=== PATIENT | male | born 1940 | race Caucasian/White ===

== ENCOUNTER 2018-09-14 04:49 | Inpatient (IN) | payer MEDICARE, BC ==
[2018-09-14] MEDS ORDERED: Morphine 4 MG/ML VIAL ONE (05:30)
[2018-09-14] MEDS ORDERED: Nitroglycerin 0.4 MG TAB 1 EACH ONE (05:30)
[2018-09-14 05:37] LABS: #Eosinphils 0.2 thou/uL (0.0-0.7); #Lymphocytes 2.6 thou/uL (1.20-3.40); #Monocytes 0.8 thou/uL (0.11-0.59); #Neutrophils 5.7 thou/uL (1.40-6.50); %Basophils 0.2 % (0.0-1.0); %Eosinophils 2.2 % (0.0-10.0); %Lymphocytes 28.3 % (21.0-51.0); %Monocytes 8.4 % (0.0-10.0); Hemoglobin 13.6 g/dL (14.0-18.0); Mean Corpuscular HGB CONC 35.1 g/dL (32.0-36.0); Mean Corpuscular Hemoglobin 34.1 pg (27.0-31.0); Mean Corpuscular Volume 97.2 fL (78.0-98.0); Mean Platelet Volume 6.5 fL (7.4-10.4); Platelet Count 279 thou/uL (130-400); RBC Distribution Width 12.7 % (11.5-14.5); Red Blood Cell (RBC) Count 3.98 mill/uL (4.70-6.10); White Blood Cell (WBC) Count 9.3 thou/uL (4.8-10.8)
[2018-09-14] MEDS ORDERED: Ondansetron PF 4 MG/2 ML Vial ONE (05:51)
[2018-09-14] MEDS ORDERED: Diazepam 5 MG TAB ONE (05:51)
[2018-09-14 05:52] LABS: ALT (SGPT) 19 U/L (8-55); AST (SGOT) 27 U/L (5-34); Albumin 4.3 g/dL (3.4-4.8); Alkaline Phosphatase 80 U/L (40-150); Anion Gap 14 mmol/L (10-20); BUN (Urea Nitrogen) 6 mg/dL (8.4-25.7); Bilirubin, Total 1.4 mg/dL (0.2-1.2); Calc. Creatinine Clearance 0 mL/min (70-130); Calcium 9.2 mg/dL (7.8-10.44); Carbon Dioxide 26 mmol/L (23-31); Chloride 92 mmol/L (98-107); Estimated GFR-MDRD Greater than 90; Glucose 102 mg/dL (83-110); Potassium 3.8 mmol/L (3.5-5.1); Protein, Total 7.3 g/dL (5.8-8.1); Sodium 128 mmol/L (136-145)
[2018-09-14] MEDS ORDERED: Fentanyl 100 MCG/2 ML VIAL ONE (06:47)
--- NOTE | 2018-09-14 08:34 | RAD ---
LEFT SHOULDER 3 VIEWS: Date: 09/14/18 INDICATION: Left shoulder pain. INDICATION: Left upper extremity pain and weakness. COMPARISON: None. FINDINGS: There is mild degenerative arthrosis involving the left AC joint. Visualized left lung is clear. Sadiq ohumeral alignment is within normal limits. IMPRESSION: No acute osseous abnormality. POS: BH
--- NOTE | 2018-09-14 08:35 | RAD ---
LEFT ELBOW 4 VIEWS: INDICATION: Left upper extremity pain and weakness after a fall. COMPARISON: None. FINDINGS: There is moderate osteoarthrosis of the left elbow joint. Enthesopathic change is seen off the olecr anon. Radiocapitellar alignment is within normal limits. No joint capsular distention is noted. IMPRESSION: Moderate osteoarthrosis of the left elbow. POS: BH
--- NOTE | 2018-09-14 08:35 | RAD ---
CHEST 1 VIEW: Date: 09/14/18 INDICATION: Chest pain. COMPARISON: Prior exam dated 10/02/07. FINDINGS: Sternotomy changes are stable. Mild cardiomegaly is stable. Lungs are clear. No pleural effusion or p neumothorax evident. Osseous structures reveal no acute abnormality. IMPRESSION: No acute cardiopulmonary abnormality. POS: BH
[2018-09-14] MEDS ORDERED: ADENOSINE 60 MG/20 ML VIAL ONE (09:57)
[2018-09-14 10:00] LABS: Troponin I 0.021 ng/mL (< 0.028)
[2018-09-14] MEDS ORDERED: Nitroglycerin 0.4 MG TAB (25 Tab Bottle) PO PRN (10:04)
--- NOTE | 2018-09-14 10:51 | CON ---
DATE OF CONSULTATION: 09/14/2018 This is Moriah Herrmann PA-C dictating a report for Wali Meadows MD. CONSULTING PHYSICIAN: Wali Meadows MD REASON FOR CONSULTATION: Left elbow pain. HISTORY OF PRESENT ILLNESS: This is a 77-year-old male, who presented to the emergency room today with complaints of left arm pain and weakness. He reported pain in his elbow that also went into his forearm and shoulder. He was evaluated for cardiac concerns as well as elbow pain. Left elbows were obtained with evidence of chronic degenerative changes and no fracture, however, the patient was unable to fully flex and extend at the elbow. We have been consulted for this reason. The patient is being admitted to telemetry for further chest pain evaluation by way of the [facility]. We have been consulted for evaluation of elbow pain. Currently at bedside, the patient states that he received injections into his elbow approximately every [address] Garcia at [facility]. He is due for another injection later this month and has a scheduled appointment on the . He denies any recent fever or chills. He denies any redness to the area. He states that his arm usually hurts pretty bad by the time he needs an injection. He does state that he has had a sudden increase in activity and is doing much more than he normally does and much more than he probably should be doing. 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 He states his elbow pain has worsened since this event. He denies any numbness or tingling. He is right-hand dominant. PAST MEDICAL HISTORY: Significant for CABG in 2003, hypertension, and anxiety. PAST SURGICAL HISTORY: Coronary artery bypass graft of 2 vessels and cholecystectomy. SOCIAL HISTORY: The patient drinks everyday approximately less than 5 drinks per day. Denies any alcohol use. Does state that he uses chewing tobacco. FAMILY HISTORY: Reviewed and noncontributory. REVIEW OF SYSTEMS: A 10-point review of systems conducted and otherwise negative except for stated above. PHYSICAL EXAMINATION: VITAL SIGNS: Show blood pressure 151/83, pulse is 74, respiratory rate of 20, temperature 98.2, and O2 saturation 94% on room air. GENERAL: The patient is awake and alert. He is in no apparent distress. He is sitting in the stretcher in the ER with family at bedside. He is sitting up in bed. His left upper extremity is noted to be in a sling. He is pleasant and cooperative with exam today and answers all questions appropriately. HEENT: Head is normocephalic and atraumatic. NECK: Supple. Trachea midline. LUNGS: Breathing nonlabored. EXTREMITIES: The left upper extremity was evaluated. There is no evidence for soft tissue swelling noted. No ecchymosis. No lesions to the skin. The patient is tender globally over the elbow. He has pain elicited with active flexion and extension of the elbow. He is unable to fully flex past 90 degrees and unable to fully extend lacking approximately 30 to 40 degrees. Distal neurovascular status is intact. No pain with range of motion in the shoulder. All other extremities were noted without any signs of deformity or injury. RADIOGRAPHIC DATA: Radiographic findings reviewed including views of the left elbow demonstrate extensive degenerative changes. No evidence for acute fracture. LABORATORY DATA: Laboratory data including CBC reviewed, which shows a normal white blood cell count. IMPRESSION: Left elbow pain with chronic degenerative changes and recent exacerbation. PLAN: At this time, the patient is being admitted for further cardiac workup. I believe this pain is likely an exacerbation of his chronic underlying osteoarthritis. No signs of trauma and the patient has had a recent exacerbation in activity leading to this. No signs of infection. Please re-consult the Orthopedic Service as needed. The patient may follow up with his current orthopedic physician when he is discharged from the hospital for his scheduled injection. Job ID: [id number]
--- NOTE | 2018-09-14 11:05 | HP ---
PRIMARY CARE PROVIDER: Dr. Storm Paulino. CHIEF COMPLAINT: Chest pain. HISTORY OF PRESENT ILLNESS: Mr. Jeffers is a pleasant 77-year-old gentleman, who was seen at [facility] on September 14, 2018. He initially presented to the emergency room complaining of left elbow pain. He reports that he has a history of arthritis in the left elbow. He receives steroid injections for the same through his orthopedic doctor at [facility]. He reports that his last steroid injection was three months ago. He reports that he had a flare of left elbow arthritis last night. He reports that the pain is sharp, constant, 10/10 at its worst, worse with movements at his left elbow, improved with resting the elbow. He also reports that over the last 3 days, he has had on and off left-sided chest pain. He describes it as a dull sensation, 4/10 to 5/10 at its worst, not accompanied by shortness of breath, nausea, vomiting, palpitations or lightheadedness. REVIEW OF SYSTEMS: All other systems reviewed and found to be negative. PAST MEDICAL HISTORY: Coronary artery disease, hypertension. PAST SURGICAL HISTORY: Coronary artery bypass graft and cholecystectomy. PSYCHIATRIC HISTORY: Anxiety. SOCIAL HISTORY: The patient denies tobacco use or recreational drug use. He drinks 3-4 beers a day. CODE STATUS: I discussed his code status. He is full code. ALLERGIES: No known drug allergies. HOME MEDICATIONS: Amitryptiline PRN, Testosterone as directed, Lipitor 40 mg daily, aspirin 81 mg daily, metoprolol succinate 50 mg daily, Ativan 0.5 mg daily and omeprazole 20 mg daily. PHYSICAL EXAMINATION: GENERAL: On examination, Mr. Jeffers is awake and alert, not in acute distress. VITAL SIGNS: Blood pressure is 151/83, pulse 74, respiratory rate 20, and oxygen saturation 94% on room air. He is afebrile. When he presented to the emergency room, he had a blood pressure of 190/120. EYES: No scleral icterus, no conjunctival pallor. ENT: Moist mucosal membranes. No oropharyngeal erythema or exudates. NECK: Supple, nontender, trachea is midline. RESPIRATORY: Accessory muscles of breathing are not active. Chest wall movements are symmetric bilaterally. Lungs are clear to auscultation without wheeze, rhonchi, or crepitations. CARDIOVASCULAR: S1 and S2 are heard, regular. Peripheral pulses palpable. No carotid bruit. No pericardial rub. ABDOMEN: Soft, nontender, bowel sounds heard. NEUROLOGIC: Cranial nerves 2 through 12 intact, deep tendon reflexes 2+. MUSCULOSKELETAL: Left elbow, mildly warm, erythematous, diminished range of movement. SKIN: Erythema over the left elbow. LYMPHATIC: No cervical lymphadenopathy. PSYCHIATRIC: Normal mood, normal affect, the patient is oriented to person, place, and time. LABORATORY DATA: Mr. Jeffers's labs and investigations were reviewed. I reviewed his electrocardiogram, which shows normal sinus rhythm, no ST changes to suggest an acute coronary syndrome. I also reviewed his chest x-ray, which does not show any pulmonary infiltrates. X-rays of the left elbow showed moderate osteoarthrosis of the left elbow. X-rays of the left shoulder did not show any acute osseous abnormality. He has normal white count, normocytic anemia with hemoglobin 13.6, normal platelet count, decreased sodium of 128, normal potassium, normal creatinine, elevated total bilirubin of 1.4, and otherwise unremarkable liver profile. Troponin I is negative x2. BNP is normal at 44.8. ASSESSMENT AND PLAN: Mr. Jeffers is a pleasant 77-year-old gentleman, who was seen at [facility] on August 15, 2018. His problem list includes: 1. Chest pain: Mr. Jeffers is presenting with intermittent left-sided chest pain. Given his significant cardiac history, he will be admitted to the hospital for telemetry monitoring and for stress test. Further management depending on outcome of the stress test. 2. Left elbow pain: This appears to be chronic. We will consult Orthopedic Surgery Service for opinion and help with management. 3. Hyponatremia: Likely asymptomatic, we will recheck sodium level. 4. Hypertension: We will monitor vital signs and titrate antihypertensives as needed. Please note that patient was in hypertensive urgency at the time of presentation, but this has improved. 5. Dyslipidemia: Continue statin. 6. Anxiety: Continue alprazolam as needed. Many thanks for allowing me to participate in your patient's care. Please feel free to contact me with any questions or concerns. LEVEL OF RISK: High. LEVEL OF COMPLEXITY: High. Job ID: [id number] [facility]
--- NOTE | 2018-09-14 14:40 | NM ---
EXAM: CARDIAC SPECT HISTORY: Chest pain, coronary artery disease, status post CABG. Hypertension TECHNIQUE: A myocardial perfusion scan was performed using the single isotope 1 day protocol with freddy hnetium 99m sestamibi. [11 mCi] was injected intravenously for the rest exam followed by 31 mCifor the stress study. Pharmacologic stress with adenosine was monitored and interpreted by Nita Davidson nurse practitioner FINDINGS: Homogeneous tracer distribution is seen in the myocardial segments on stress and rest image s without fixed or reversible defects. Gated SPECT LVEF: 66% Wall motion exam: Normal IMPRESSION: Normal myocardial perfusion scan
[2018-09-14 15:02] LABS: Troponin I 0.015 ng/mL (< 0.028)
[2018-09-14 15:57] VITALS: BMI 25.0
[2018-09-14] MEDS: Morphine 2 MG/ML SYRINGE SLOW IVP PRN ×2 (16:07→22:12)
[2018-09-14] MEDS ORDERED: Diazepam 5 MG TAB PO PRN (18:00)
[2018-09-14] MEDS ORDERED: Diazepam 5 MG TAB PO SCH (18:00)
[2018-09-14] MEDS ORDERED: Thiamine HCl 200 MG/2 ML VIAL IM SCH (18:30)
[2018-09-14 19:04] LABS: Syphilis Antibody Nonreactive (Nonreactive); Syphilis Antibody Index 0.02 S/CO (<1.00 Non-Reactive)
[2018-09-15] MEDS: Morphine 2 MG/ML SYRINGE SLOW IVP PRN ×3 (03:33→12:08)
[2018-09-15] MEDS ORDERED: Diazepam 5 MG TAB PO PRN (04:00)
[2018-09-15] MEDS: Folic Acid 1 MG TAB PO SCH (08:29)
[2018-09-15] MEDS: Multivitamin W/ Minerals 1 TAB PO SCH (08:29)
[2018-09-15] MEDS: Lorazepam 0.5 MG TAB PO SCH (08:29)
[2018-09-15] MEDS: Thiamine 100 MG TAB PO SCH (08:29)
[2018-09-15] MEDS: Magnesium Oxide 400 MG TAB PO SCH (08:29)
[2018-09-15] MEDS ORDERED: Aspirin 325 mg Enteric Coated Tablet PO SCH (09:00)
[2018-09-15] MEDS ORDERED: Aspirin 81 mg Enteric Coated Tablet PO SCH (09:00)
[2018-09-15 09:13] LABS: #Eosinphils 0.1 thou/uL (0.0-0.7); #Lymphocytes 1.6 thou/uL (1.20-3.40); %Basophils 0.1 % (0.0-1.0); %Lymphocytes 20.9 % (21.0-51.0); %Monocytes 13.3 % (0.0-10.0); %Neutrophils 64.6 % (42.0-75.0); Hemoglobin 13.4 g/dL (14.0-18.0); Mean Corpuscular Hemoglobin 33.7 pg (27.0-31.0); Mean Corpuscular Volume 99.2 fL (78.0-98.0); Mean Platelet Volume 6.7 fL (7.4-10.4); Platelet Count 239 thou/uL (130-400); RBC Distribution Width 12.9 % (11.5-14.5); Red Blood Cell (RBC) Count 3.99 mill/uL (4.70-6.10); White Blood Cell (WBC) Count 7.7 thou/uL (4.8-10.8)
[2018-09-15 09:28] LABS: Anion Gap 10 mmol/L (10-20); BUN (Urea Nitrogen) 5 mg/dL (8.4-25.7); Calc. Creatinine Clearance 94 mL/min (70-130); Calcium 9.1 mg/dL (7.8-10.44); Carbon Dioxide 30 mmol/L (23-31); Chloride 96 mmol/L (98-107); Estimated GFR-MDRD Greater than 90; Glucose 122 mg/dL (83-110); Potassium 3.7 mmol/L (3.5-5.1); Sodium 132 mmol/L (136-145)
[2018-09-15] MEDS ORDERED: ISOVUE-370 76%-LOCM 1 ML ONE (11:10)
--- NOTE | 2018-09-15 11:36 | EKG ---
Test Reason : Blood Pressure : / mmHG Vent. Rate : 079 BPM Atrial Rate : 079 BPM P-R Int : 196 ms QRS Dur : 096 ms QT Int : 372 ms P-R-T Axes : 010 020 056 degrees QTc Int : 426 ms Sinus rhythm with Premature atrial complexes with Abberant conduction Incomplete right bundle branch block possible inferior HI unknown age abnormal Confirmed by DR. Jeremiah CERVANTES (3) on 09/15/2018 11:36:22 AM Referred By: Confirmed By:DR. Jeremiah CERVANTES
--- NOTE | 2018-09-15 11:37 | EKG ---
Test Reason : Blood Pressure : / mmHG Vent. Rate : 071 BPM Atrial Rate : 071 BPM P-R Int : 190 ms QRS Dur : 098 ms QT Int : 388 ms P-R-T Axes : 047 023 062 degrees QTc Int : 421 ms Normal sinus rhythm Incomplete right bundle branch block possible inferior scar Confirmed by DR. Jeremiah CERVANTES (3) on 09/15/2018 11:37:32 AM Referred By: Confirmed By:DR. Jeremiah CERVANTES
--- NOTE | 2018-09-15 12:41 | CT ---
CTA chest with contrast: Multiple axial tomograms obtained through the chest following a pulmonary angiogram protocol with mul tiplanar reconstruction and 3-D postprocessing. INDICATIONS: Dyspnea and chest pain. Assess for pulmonary embolus. Elevated d-dimer COMPARISON: None FINDINGS: Pulmonary arteries show adequate opacification. No evidence of pulmonary embolus identified. Thoracic aorta is unremarkable. No evidence of dissection. Mediastinum appears unremarkable. No adenopathy. Lungs show chronic parenchymal change. Atelectasis in the posterior left lung base. No evidence of in flammatory infiltrate. No evidence of effusion. Images through the upper abdomen appear unremarkable. Soft tissues of the thorax appear unremarkable. Osseous structures of the thorax appear unremarkable. IMPRESSION: 1. No evidence of pulmonary embolus 2. No acute lung process.
[2018-09-15] MEDS ORDERED: Acetaminophen/Codeine 30-300mg Tablet PO PRN (14:20)
[2018-09-15] MEDS ORDERED: traMADol HCl 50 MG TAB PO PRN (14:20)
--- NOTE | 2018-09-15 14:41 | PDOC.PN ---
- Subjective Encounter Start Date: 09/15/18 Encounter Start Time: 07:00 Pt seen for followup re: chest pain. Reports elbow pain, chest pain better. No nausea or vomiting. - Objective Resuscitation Status - Order Detail: 09/14/18 10:34 Resuscitation Status Routine Resuscitation Status: FULL: Full Resuscitation Discussed with: patient MAR Reviewed: Yes Vital Signs & Weight: Vital Signs (12 hours) Temp Pulse Resp BP BP Pulse Ox 09/15/18 12:20 169/83 H 09/15/18 11:34 99.1 F 92 18 169/83 H 96 09/15/18 08:17 166/90 H 09/15/18 07:50 95 09/15/18 07:40 98.2 F 90 18 166/90 H 95 09/15/18 04:35 169/84 H 09/15/18 04:00 98.2 F 99 16 169/84 H 95 Weight Weight 190 lb 3.2 oz I&O: 09/14/18 09/15/18 09/16/18 06:59 06:59 06:59 Intake Total 240 600 Balance 240 600 Result Diagrams: 09/15/18 08:50 09/15/18 08:50 EKG Reviewed by me: Yes (Tele: NSR) Phys Exam - Physical Examination Constitutional: NAD HEENT: moist MMs Neck: supple Respiratory: clear to auscultation bilateral Cardiovascular: RRR Gastrointestinal: soft L elbow tenderness Neurological: moves all 4 limbs Psychiatric: normal affect Dx/Plan (1) Chest pain Code(s): R07.9 - CHEST PAIN, UNSPECIFIED Status: Acute Comment: Improved, stress test negative, check CTA to r/o PE (2) Left elbow pain Code(s): M25.522 - PAIN IN LEFT ELBOW Status: Acute Comment: appreciate ortho service input. Continue pain medications (3) HTN (hypertension) Code(s): I10 - ESSENTIAL (PRIMARY) HYPERTENSION Status: Chronic Comment: monitor vital signs and titrate antihypertensives as needed. - Plan * . Review of Systems - Review of Systems Cardiovascular: chest pain. negative: palpitations, orthopnea, paroxysmal nocturnal dyspnea, edema, light headedness Gastrointestinal: negative: Nausea, Vomiting, Abdominal Pain, Diarrhea, Constipation, Melena, Hematochezia Musculoskeletal: Other (left elbow pain) - Medications/Allergies Allergies/Adverse Reactions: Allergies Allergy/AdvReac Type Severity Reaction Status Date / Time No Known Drug Allergies Allergy Verified 09/14/18 16:48 Medications: Current Medications Acetaminophen/Codeine Phosphate (Tylenol #3) 1 tab PO Q6H PRN PRN Reason: Pain 1-5 Acetaminophen/Codeine Phosphate (Tylenol #3) 2 tab PO Q6H PRN PRN Reason: Pain 6-10 Amitriptyline HCl (Elavil) 20 mg PO QPM [facility] Atorvastatin Calcium (Lipitor) 40 mg PO QPM [facility] Diazepam (Valium) 5 mg PO Q4H PRN PRN Reason: FOR ASE 10 OR GREATER Folic Acid (Folvite) 1 mg PO DAILY [facility] Last Admin: 09/15/18 08:29 Dose: 1 mg Iron/Minerals/Multivitamins (Theragran M) 1 tab PO DAILY [facility] Last Admin: 09/15/18 08:29 Dose: 1 tab Lorazepam (Ativan) 0.5 mg PO DAILY [facility] Last Admin: 09/15/18 08:29 Dose: 0.5 mg Magnesium Oxide (Magnesium Oxide) 400 mg PO DAILY [facility] Last Admin: 09/15/18 08:29 Dose: 400 mg Metoprolol Succinate (Toprol Xl) 50 mg PO DAILY [facility] Last Admin: 09/15/18 08:29 Dose: 50 mg Morphine Sulfate (Morphine) 2 mg SLOW IVP Q4H PRN PRN Reason: BREAKTHRU PAIN Last Admin: 09/15/18 12:08 Dose: 2 mg Nitroglycerin (Nitrostat) 0.4 mg PO Q5MIN PRN PRN Reason: Chest Pain Pantoprazole Sodium (Protonix) 40 mg PO QPM [facility] Thiamine HCl (Thiamine) 100 mg PO DAILY [facility] Last Admin: 09/15/18 08:29 Dose: 100 mg Tramadol HCl (Ultram) 50 mg PO Q6H PRN PRN Reason: Pain (1-5) Tramadol HCl (Ultram) 100 mg PO Q6H PRN PRN Reason: Pain (6-10)
[2018-09-15] MEDS: traMADol HCl 50 MG TAB PO PRN ×2 (15:04→21:08)
[2018-09-15 15:53] LABS: Amphetamine Not Detected (NotDetected); Benzodiazepine Screen Detected (NotDetected); Cocaine Metabolite Screen Not Detected (NotDetected); Medtox Reader # READER 1; Methamphetamine Not Detected (NotDetected); Opiate Screen Detected (NotDetected); Phencyclidine (PCP) Not Detected (NotDetected); THC/Cannabinoid Screen Not Detected (NotDetected); Tricyclic Screen Detected (NotDetected)
[2018-09-15 15:54] LABS: Barbiturates Screen Not Detected (NotDetected); Medtox Control Line Valid? VALID (VALID); Methadone Not Detected (NotDetected); Oxycodone Screen Not Detected (NotDetected)
[2018-09-15] MEDS: Acetaminophen/Codeine 30-300mg Tablet PO PRN (16:26)
[2018-09-15] MEDS ORDERED: hydrALAZINE 20 MG/ML VIAL SLOW IVP PRN (17:05)
[2018-09-15] MEDS: Atorvastatin Calcium 40 MG TAB PO SCH (21:09)
[2018-09-15] MEDS: Amitriptyline HCl 10 MG TAB PO SCH (21:09)
[2018-09-16 05:07] LABS: #Eosinphils 0.1 thou/uL (0.0-0.7); #Lymphocytes 2.3 thou/uL (1.20-3.40); #Monocytes 1.1 thou/uL (0.11-0.59); #Neutrophils 6.4 thou/uL (1.40-6.50); %Basophils 0.4 % (0.0-1.0); %Lymphocytes 23.1 % (21.0-51.0); %Monocytes 10.9 % (0.0-10.0); %Neutrophils 64.6 % (42.0-75.0); Hemoglobin 12.1 g/dL (14.0-18.0); Mean Corpuscular HGB CONC 34.5 g/dL (32.0-36.0); Mean Corpuscular Hemoglobin 34.3 pg (27.0-31.0); Mean Corpuscular Volume 99.2 fL (78.0-98.0); Mean Platelet Volume 6.2 fL (7.4-10.4); Platelet Count 259 thou/uL (130-400); RBC Distribution Width 12.8 % (11.5-14.5); Red Blood Cell (RBC) Count 3.52 mill/uL (4.70-6.10); White Blood Cell (WBC) Count 9.9 thou/uL (4.8-10.8)
[2018-09-16 05:34] LABS: Anion Gap 15 mmol/L (10-20); BUN (Urea Nitrogen) 10 mg/dL (8.4-25.7); Calc. Creatinine Clearance 50 mL/min (70-130); Calcium 8.9 mg/dL (7.8-10.44); Carbon Dioxide 25 mmol/L (23-31); Chloride 90 mmol/L (98-107); Estimated GFR-MDRD 45; Glucose 108 mg/dL (83-110); Potassium 3.7 mmol/L (3.5-5.1); Sodium 126 mmol/L (136-145)
[2018-09-16] MEDS: Lorazepam 0.5 MG TAB PO SCH ×2 (08:01→17:38)
[2018-09-16] MEDS: Sodium Chloride 0.9% 1,000 ML IV SCH ×3 (08:18→23:07)
[2018-09-16] MEDS: Thiamine 100 MG TAB PO SCH (08:22)
[2018-09-16] MEDS: Folic Acid 1 MG TAB PO SCH (08:22)
[2018-09-16] MEDS: Multivitamin W/ Minerals 1 TAB PO SCH (08:22)
[2018-09-16] MEDS: Magnesium Oxide 400 MG TAB PO SCH (08:22)
[2018-09-16] MEDS ORDERED: Bisacodyl 5 MG TAB PO PRN (14:16)
[2018-09-16] MEDS ORDERED: Bisacodyl 5 MG TAB PO SCH (14:30)
[2018-09-16 16:33] LABS: Anion Gap 13 mmol/L (10-20); BUN (Urea Nitrogen) 18 mg/dL (8.4-25.7); Calc. Creatinine Clearance 35 mL/min (70-130); Calcium 8.2 mg/dL (7.8-10.44); Carbon Dioxide 25 mmol/L (23-31); Chloride 87 mmol/L (98-107); Estimated GFR-MDRD 30; Glucose 144 mg/dL (83-110); Sodium 121 mmol/L (136-145)
--- NOTE | 2018-09-16 16:48 | PDOC.PN ---
- Subjective Encounter Start Date: 09/16/18 Encounter Start Time: 16:46 Pt seen for followup re: ANTHONY. Denies chest pain, left elbow pain improved. - Objective Resuscitation Status - Order Detail: 09/14/18 10:34 Resuscitation Status Routine Resuscitation Status: FULL: Full Resuscitation Discussed with: patient PAPO Reviewed: Yes Vital Signs & Weight: Vital Signs (12 hours) Temp Pulse Resp BP BP Pulse Ox 09/16/18 16:17 109/60 09/16/18 15:33 98.2 F 87 16 109/60 94 L 09/16/18 14:21 98.2 F 84 20 102/71 91 L 09/16/18 12:15 87/55 L 09/16/18 12:00 97.8 F 84 16 87/55 L 95 09/16/18 08:13 88/50 L 09/16/18 07:59 97.5 F L 90 18 88/50 L 92 L 09/16/18 07:31 95 Weight Weight 190 lb 3.2 oz I&O: 09/15/18 09/16/18 09/17/18 06:59 06:59 06:59 Intake Total 240 900 600 Output Total 125 Balance 240 900 475 Result Diagrams: 09/16/18 04:56 09/16/18 16:02 EKG Reviewed by me: Yes (Tele: NSR) Phys Exam - Physical Examination Constitutional: NAD HEENT: moist MMs Neck: supple Respiratory: clear to auscultation bilateral Cardiovascular: RRR Gastrointestinal: soft Neurological: moves all 4 limbs Psychiatric: normal affect, A&O x 3 Dx/Plan (1) ANTHONY (acute kidney injury) Code(s): N17.9 - ACUTE KIDNEY FAILURE, UNSPECIFIED Status: Acute Comment: etiology unclear. Pt receiving IV fluids. Check renal US. (2) Hyponatremia Code(s): E87.1 - HYPO-OSMOLALITY AND HYPONATREMIA Status: Acute Comment: Check urine lyrtes, and urine and serum osmolality. (3) Left elbow pain Code(s): M25.522 - PAIN IN LEFT ELBOW Status: Acute Comment: appreciate ortho service input. Continue pain medications (4) HTN (hypertension) Code(s): I10 - ESSENTIAL (PRIMARY) HYPERTENSION Status: Chronic Comment: controlled (pt was hypotensive overnight) (5) Chest pain Code(s): R07.9 - CHEST PAIN, UNSPECIFIED Status: Resolved - Plan * . Review of Systems - Review of Systems Cardiovascular: negative: chest pain, palpitations, orthopnea, paroxysmal nocturnal dyspnea, edema, light headedness Gastrointestinal: negative: Nausea, Vomiting, Abdominal Pain, Diarrhea, Constipation, Melena, Hematochezia Musculoskeletal: Other (left elbow pain) - Medications/Allergies Allergies/Adverse Reactions: Allergies Allergy/AdvReac Type Severity Reaction Status Date / Time No Known Drug Allergies Allergy Verified 09/14/18 16:48 Medications: Current Medications Acetaminophen/Codeine Phosphate (Tylenol #3) 1 tab PO Q6H PRN PRN Reason: Pain 1-5 Acetaminophen/Codeine Phosphate (Tylenol #3) 2 tab PO Q6H PRN PRN Reason: Pain 6-10 Last Admin: 09/15/18 16:26 Dose: 2 tab Amitriptyline HCl (Elavil) 20 mg PO QPM [facility] Last Admin: 09/15/18 21:09 Dose: 20 mg Atorvastatin Calcium (Lipitor) 40 mg PO QPM [facility] Last Admin: 09/15/18 21:09 Dose: 40 mg Bisacodyl (Dulcolax) 10 mg PO DAILYPRN PRN PRN Reason: Constipation Diazepam (Valium) 5 mg PO Q4H PRN PRN Reason: FOR ASE 10 OR GREATER Folic Acid (Folvite) 1 mg PO DAILY [facility] Last Admin: 09/16/18 08:22 Dose: 1 mg Hydralazine HCl (Apresoline) 10 mg SLOW IVP Q4H PRN PRN Reason: SBP Greater Than 180 Sodium Chloride (Normal Saline 0.9%) 1,000 mls @ 125 mls/hr IV .Q8H [facility] Last Admin: 09/16/18 16:29 Dose: 1,000 mls Iron/Minerals/Multivitamins (Theragran M) 1 tab PO DAILY [facility] Last Admin: 09/16/18 08:22 Dose: 1 tab Lorazepam (Ativan) 0.5 mg PO DAILY [facility] Last Admin: 09/16/18 08:01 Dose: Not Given Magnesium Oxide (Magnesium Oxide) 400 mg PO DAILY [facility] Last Admin: 09/16/18 08:22 Dose: 400 mg Metoprolol Succinate (Toprol Xl) 50 mg PO DAILY [facility] Last Admin: 09/16/18 08:01 Dose: Not Given Nitroglycerin (Nitrostat) 0.4 mg PO Q5MIN PRN PRN Reason: Chest Pain Pantoprazole Sodium (Protonix) 40 mg PO QPM [facility] Last Admin: 09/15/18 21:09 Dose: 40 mg Sodium Chloride (Flush - Normal Saline) 10 ml IVF Q12HR [facility] Last Admin: 09/16/18 08:18 Dose: 10 ml Sodium Chloride (Flush - Normal Saline) 10 ml IVF PRN PRN PRN Reason: Saline Flush Thiamine HCl (Thiamine) 100 mg PO DAILY [facility] Last Admin: 09/16/18 08:22 Dose: 100 mg Tramadol HCl (Ultram) 50 mg PO Q6H PRN PRN Reason: Pain (1-5) Tramadol HCl (Ultram) 100 mg PO Q6H PRN PRN Reason: Pain (6-10) Last Admin: 09/15/18 21:08 Dose: 100 mg
[2018-09-16 20:08] LABS: Potassium, Urine 33.2 mmol/L; Sodium, Urine Less than 20 mmol/L (Not Available)
[2018-09-16] MEDS: Atorvastatin Calcium 40 MG TAB PO SCH (20:50)
[2018-09-16] MEDS: Amitriptyline HCl 10 MG TAB PO SCH (20:50)
[2018-09-16] MEDS: Tamsulosin HCl 0.4 MG CAP PO SCH (20:50)
[2018-09-16] MEDS: Acetaminophen/Codeine 30-300mg Tablet PO PRN (20:51)
--- NOTE | 2018-09-16 21:04 | CON ---
DATE OF CONSULTATION: CONSULTING PHYSICIAN: Magdiel Rosario MD REASON FOR CONSULTATION: Hyponatremia and acute kidney injury. IMPRESSION: 1. Acute kidney injury, this is likely multifactorial including but not limited to the following hemodynamically-mediated injury in the context of overnight hypotension as well as contrast exposure with potential for contrast nephropathy. 2. Hyponatremia, query cause might be related to problem #1. PLAN: 1. Urine sodium and urine osmolality to evaluate and identify what kind of hyponatremia this patient has. 2. Renal supportive measures. 3. Gentle rehydration. 4. Avoid potentially nephrotoxic agents and renally dose all medications. 5. Further management to be dependent on the clinical course. HISTORY OF PRESENT ILLNESS: This is a 77-year-old gentleman, who presented here with chest pain, did undergo workup with CT scan of the chest with IV contrast to rule out pulmonary embolism. Of note, overnight, the patient experienced relatively low blood pressure, like systolic in the 80s. When the patient at baseline, does have blood pressure between 150 and 160. The patient has been noted with elevated creatinine of up to 2, having presented here with a creatinine of about 0.8, as a result of this sudden change in the renal function, decision has been taken to involve Renal in the management of this case. PAST MEDICAL HISTORY: Significant for coronary artery disease, hypertension. MEDICATIONS: Reviewed as documented on [place]. SOCIAL HISTORY: No alcohol. No tobacco. No illicit drug use. REVIEW OF SYSTEMS: As documented in the body of history. All other systems were reviewed and found not to be significantly related to presenting illness. PHYSICAL EXAMINATION: GENERAL: The patient was found not to be in any obvious distress. VITAL SIGNS: Afebrile, temperature 99.1, pulse 87, blood pressure 109/60, respiratory rate of 16, and O2 saturations of 94%. HEENT: Unremarkable. Moist oral mucosa. NECK: Supple. No conjunctival injection or icterus. CARDIOVASCULAR: First and second heart sounds were heard. RESPIRATORY: Clear to auscultation. DIGESTIVE: Revealed a benign abdomen with positive bowel sounds. EXTREMITIES: No peripheral edema. SKIN: No new gross rash or lymphatics. No peripheral lymphadenopathy. SUMMARY: This is a 77-year-old gentleman who presented here with chest pain while undergoing workup, now experiencing elevated creatinine and low sodium. Thank you for this consultation. We will follow with you. Yonas ID: [id number]
--- NOTE | 2018-09-17 00:20 | ULT ---
Bilateral renal ultrasound CLINICAL INDICATION: Acute kidney injury COMPARISON: None FINDINGS: Right kidney: There is no evidence of a renal mass, renal calculus, or hydronephrosis seen. The right kidney measures 10.9 cm x 6.1 cm. Left kidney: There is no evidence of a renal mass, calculus, hydronephrosis. The left kidney measures 13.1 cm x 6.2 cm. Urinary bladder: Urinary bladder is distended with urinary bladder volume of 1124.7 mL. IMPRESSION: 1. No evidence of hydronephrosis. 2. Distention of the urinary bladder with a urinary bladder volume of 1124.7 mL.
[2018-09-17] MEDS: Sodium Chloride 0.9% 1,000 ML IV SCH ×2 (05:05→12:11)
[2018-09-17 08:59] LABS: #Eosinphils 0.2 thou/uL (0.0-0.7); #Lymphocytes 1.2 thou/uL (1.20-3.40); #Monocytes 0.5 thou/uL (0.11-0.59); #Neutrophils 3.7 thou/uL (1.40-6.50); %Basophils 0.3 % (0.0-1.0); %Eosinophils 2.7 % (0.0-10.0); %Lymphocytes 21.7 % (21.0-51.0); %Monocytes 8.5 % (0.0-10.0); %Neutrophils 66.8 % (42.0-75.0); Hemoglobin 10.1 g/dL (14.0-18.0); Mean Corpuscular HGB CONC 34.8 g/dL (32.0-36.0); Mean Corpuscular Hemoglobin 34.2 pg (27.0-31.0); Mean Corpuscular Volume 98.1 fL (78.0-98.0); Mean Platelet Volume 6.2 fL (7.4-10.4); Platelet Count 193 thou/uL (130-400); RBC Distribution Width 12.5 % (11.5-14.5); Red Blood Cell (RBC) Count 2.96 mill/uL (4.70-6.10); White Blood Cell (WBC) Count 5.6 thou/uL (4.8-10.8)
[2018-09-17 09:17] LABS: Anion Gap 10 mmol/L (10-20); BUN (Urea Nitrogen) 12 mg/dL (8.4-25.7); Calc. Creatinine Clearance 87 mL/min (70-130); Calcium 8.1 mg/dL (7.8-10.44); Carbon Dioxide 26 mmol/L (23-31); Chloride 94 mmol/L (98-107); Estimated GFR-MDRD 85; Glucose 98 mg/dL (83-110); Potassium 3.8 mmol/L (3.5-5.1); Sodium 126 mmol/L (136-145)
[2018-09-17] MEDS: Magnesium Oxide 400 MG TAB PO SCH (09:33)
[2018-09-17] MEDS: Multivitamin W/ Minerals 1 TAB PO SCH (09:33)
[2018-09-17] MEDS: Lorazepam 0.5 MG TAB PO SCH (09:34)
[2018-09-17] MEDS: Folic Acid 1 MG TAB PO SCH (09:34)
[2018-09-17] MEDS ORDERED: Magnesium Citrate 300 ML BOT PO SCH (11:00)
[2018-09-17] MEDS ORDERED: Ondansetron PF 4 MG/2 ML Vial SLOW IVP PRN (11:47)
[2018-09-17] MEDS: Thiamine 100 MG TAB PO SCH (12:12)
--- NOTE | 2018-09-17 12:36 | PDOC.PN ---
- Subjective Encounter Start Date: 09/17/18 Encounter Start Time: 07:20 Pt seen for followup re: hyponatremia. Feels better. - Objective Resuscitation Status - Order Detail: 09/14/18 10:34 Resuscitation Status Routine Resuscitation Status: FULL: Full Resuscitation Discussed with: patient PAPO Reviewed: Yes Vital Signs & Weight: Vital Signs (12 hours) Temp Pulse Resp BP BP Pulse Ox 09/17/18 12:21 130/64 09/17/18 11:59 98.6 F 92 16 136/75 93 L 09/17/18 09:45 95 09/17/18 09:35 97.8 F 89 16 130/64 95 09/17/18 04:00 97/52 L 09/17/18 03:57 99.5 F 94 16 97/52 L 93 L Weight Weight 190 lb 3.2 oz I&O: 09/16/18 09/17/18 09/18/18 06:59 06:59 06:59 Intake Total 900 1950 300 Output Total 4225 1820 Balance 900 -8860 -8454 Result Diagrams: 09/17/18 08:47 09/17/18 08:47 EKG Reviewed by me: Yes (Tele: sinus tachycardia.) Phys Exam - Physical Examination Constitutional: NAD HEENT: moist MMs Neck: supple Respiratory: clear to auscultation bilateral S1, S2, reg, tachy Gastrointestinal: soft Neurological: moves all 4 limbs Psychiatric: normal affect, A&O x 3 Dx/Plan (1) Hyponatremia Code(s): E87.1 - HYPO-OSMOLALITY AND HYPONATREMIA Status: Acute Comment: sodium improved to 126 today, continue to monitor lytes (2) Left elbow pain Code(s): M25.522 - PAIN IN LEFT ELBOW Status: Acute Comment: Improved, continue pain medications (3) HTN (hypertension) Code(s): I10 - ESSENTIAL (PRIMARY) HYPERTENSION Status: Chronic Comment: controlled (4) Chest pain Code(s): R07.9 - CHEST PAIN, UNSPECIFIED Status: Resolved (5) ANTHONY (acute kidney injury) Code(s): N17.9 - ACUTE KIDNEY FAILURE, UNSPECIFIED Status: Resolved - Plan * . Review of Systems - Review of Systems Cardiovascular: negative: chest pain, palpitations, orthopnea, paroxysmal nocturnal dyspnea, edema, light headedness Gastrointestinal: negative: Nausea, Vomiting, Abdominal Pain, Diarrhea, Constipation, Melena, Hematochezia Musculoskeletal: Other (L elbow pain is better) - Medications/Allergies Allergies/Adverse Reactions: Allergies Allergy/AdvReac Type Severity Reaction Status Date / Time No Known Drug Allergies Allergy Verified 09/14/18 16:48 Medications: Current Medications Acetaminophen/Codeine Phosphate (Tylenol #3) 1 tab PO Q6H PRN PRN Reason: Pain 1-5 Last Admin: 09/17/18 05:04 Dose: 1 tab Acetaminophen/Codeine Phosphate (Tylenol #3) 2 tab PO Q6H PRN PRN Reason: Pain 6-10 Last Admin: 09/16/18 20:51 Dose: 2 tab Amitriptyline HCl (Elavil) 20 mg PO QPM [facility] Last Admin: 09/16/18 20:50 Dose: 20 mg Atorvastatin Calcium (Lipitor) 40 mg PO QPM [facility] Last Admin: 09/16/18 20:50 Dose: 40 mg Bisacodyl (Dulcolax) 10 mg PO DAILYPRN PRN PRN Reason: Constipation Diazepam (Valium) 5 mg PO Q4H PRN PRN Reason: FOR ASE 10 OR GREATER Folic Acid (Folvite) 1 mg PO DAILY [facility] Last Admin: 09/17/18 09:34 Dose: 1 mg Hydralazine HCl (Apresoline) 10 mg SLOW IVP Q4H PRN PRN Reason: SBP Greater Than 180 Sodium Chloride (Normal Saline 0.9%) 1,000 mls @ 125 mls/hr IV .Q8H [facility] Last Admin: 09/17/18 12:11 Dose: 1,000 mls Iron/Minerals/Multivitamins (Theragran M) 1 tab PO DAILY [facility] Last Admin: 09/17/18 09:33 Dose: 1 tab Lorazepam (Ativan) 0.5 mg PO DAILY [facility] Last Admin: 09/17/18 09:34 Dose: 0.5 mg Magnesium Oxide (Magnesium Oxide) 400 mg PO DAILY [facility] Last Admin: 09/17/18 09:33 Dose: 400 mg Metoprolol Succinate (Toprol Xl) 50 mg PO DAILY [facility] Last Admin: 09/17/18 09:33 Dose: 50 mg Nitroglycerin (Nitrostat) 0.4 mg PO Q5MIN PRN PRN Reason: Chest Pain Ondansetron HCl (Zofran) 4 mg SLOW IVP Q4H PRN PRN Reason: Nausea/Vomiting Last Admin: 09/17/18 12:14 Dose: 4 mg Pantoprazole Sodium (Protonix) 40 mg PO QPM [facility] Last Admin: 09/16/18 20:50 Dose: 40 mg Sodium Chloride (Flush - Normal Saline) 10 ml IVF Q12HR [facility] Last Admin: 09/17/18 09:34 Dose: Not Given Sodium Chloride (Flush - Normal Saline) 10 ml IVF PRN PRN PRN Reason: Saline Flush Tamsulosin HCl (Flomax) 0.4 mg PO HS [facility] Last Admin: 09/16/18 20:50 Dose: 0.4 mg Thiamine HCl (Thiamine) 100 mg PO DAILY [facility] Last Admin: 09/17/18 12:12 Dose: 100 mg Tramadol HCl (Ultram) 50 mg PO Q6H PRN PRN Reason: Pain (1-5) Tramadol HCl (Ultram) 100 mg PO Q6H PRN PRN Reason: Pain (6-10) Last Admin: 09/15/18 21:08 Dose: 100 mg
[2018-09-17 18:36] LABS: Sodium 130 mmol/L (136-145)
[2018-09-17] MEDS: Amitriptyline HCl 10 MG TAB PO SCH (20:47)
[2018-09-17] MEDS: Atorvastatin Calcium 40 MG TAB PO SCH (20:48)
[2018-09-17] MEDS: Tamsulosin HCl 0.4 MG CAP PO SCH (20:48)
--- NOTE | 2018-09-17 21:21 | PRG ---
DATE OF SERVICE: SUBJECTIVE: The patient was seen and examined. Seems to be doing much better. Hemodynamically stable. OBJECTIVE: HEENT: Unremarkable. CARDIOVASCULAR SYSTEM: First and second heart sounds were heard. RESPIRATORY SYSTEM: Clear to auscultation. DIGESTIVE SYSTEM: Revealed a benign abdomen with positive bowel sounds. EXTREMITIES: No peripheral edema. SKIN: No new gross rash. LYMPHATICS: No peripheral lymphadenopathy. IMPRESSION: 1. Hyponatremia, which seems to be improved. 2. Acute kidney injury, which is resolved. PLAN: 1. We will continue current renal supportive measures. 2. At this time, it is okay to discontinue IV fluid. 3. Further management will be dependent on the clinical course. Job ID: [id number]
[2018-09-18] MEDS: Sodium Chloride 0.9% 1,000 ML IV SCH ×2 (02:14→10:16)
[2018-09-18 05:31] LABS: #Eosinphils 0.2 thou/uL (0.0-0.7); #Lymphocytes 0.9 thou/uL (1.20-3.40); #Monocytes 0.4 thou/uL (0.11-0.59); #Neutrophils 2.5 thou/uL (1.40-6.50); %Eosinophils 4.5 % (0.0-10.0); %Lymphocytes 23.6 % (21.0-51.0); %Monocytes 9.9 % (0.0-10.0); Hemoglobin 9.5 g/dL (14.0-18.0); Mean Corpuscular HGB CONC 34.6 g/dL (32.0-36.0); Mean Corpuscular Hemoglobin 34.1 pg (27.0-31.0); Mean Corpuscular Volume 98.6 fL (78.0-98.0); Mean Platelet Volume 6.2 fL (7.4-10.4); Platelet Count 203 thou/uL (130-400); RBC Distribution Width 12.5 % (11.5-14.5); Red Blood Cell (RBC) Count 2.79 mill/uL (4.70-6.10)
[2018-09-18 05:49] LABS: Anion Gap 9 mmol/L (10-20); BUN (Urea Nitrogen) 8 mg/dL (8.4-25.7); Calc. Creatinine Clearance 94 mL/min (70-130); Carbon Dioxide 25 mmol/L (23-31); Chloride 103 mmol/L (98-107); Estimated GFR-MDRD Greater than 90; Glucose 151 mg/dL (83-110); Potassium 3.9 mmol/L (3.5-5.1); Sodium 133 mmol/L (136-145)
[2018-09-18 08:09] VITALS: TEMP 98.6
[2018-09-18] MEDS: Lorazepam 0.5 MG TAB PO SCH (08:11)
[2018-09-18] MEDS: Multivitamin W/ Minerals 1 TAB PO SCH (08:11)
[2018-09-18] MEDS: Folic Acid 1 MG TAB PO SCH (08:11)
[2018-09-18] MEDS: Magnesium Oxide 400 MG TAB PO SCH (08:11)
[2018-09-18] MEDS: Thiamine 100 MG TAB PO SCH (08:11)
[2018-09-18 12:20] VITALS: BP 161/80
--- NOTE | 2018-09-19 06:12 | DIS ---
DATE OF ADMISSION: 09/14/2018 DATE OF DISCHARGE: 09/18/2018 PRIMARY CARE PROVIDER: Dr. Storm Paulino. DISCHARGE DIAGNOSES: 1. Acute kidney injury. 2. Hyponatremia. 3. Chest pain, most likely musculoskeletal etiology. 4. Left elbow pain. CONDITION OF PATIENT ON THE DAY OF DISCHARGE: Stable. I assessed Mr. Jeffers on the day of discharge. He denies any chest pain or shortness of breath. Vital signs are stable. S1 and S2 are heard, regular. Lungs are clear to auscultation bilaterally. DISCHARGE MEDICATIONS: No change was made to his pre-admission home medications as dictated on my history and physical note dated September 14, 2018. CONSULTATIONS DURING THIS HOSPITALIZATION: 1. Orthopedic Surgery, Wali Meadows MD. 2. Nephrology, Magdiel Rosario MD. HOSPITAL COURSE: Mr. Jeffers is a pleasant 77-year-old gentleman, who was admitted to [facility] on September 14, 2018 for chest pain. Please refer to my history and physical note dated September 14, 2018 for further details. He had a nuclear stress test, which was normal, with left ventricular ejection fraction of 66%. He also had CT angiogram of the chest, which did not show any pulmonary embolism. There was no acute lung process. On September 16, he was found to have acute kidney injury. He was also hyponatremic. Nephrology Service was consulted. It was felt that the acute kidney injury was most likely secondary to episodes of hypotension as well as exposure to intravenous contrast. He improved with intravenous fluids. Renal ultrasound on September 16 did not show any evidence of hydronephrosis. He had distention of the urinary bladder with the urinary bladder volume of 1124 mL. At the time of admission, he also had left elbow pain. He was evaluated by Orthopedic Surgery Service. X-rays showed left elbow osteoarthrosis. There was no evidence of infection, according to Orthopedic Surgery Service. He has been advised to follow up with his current orthopedic surgeon. LABORATORY DATA: On the day of discharge, Mr. Jeffers has a sodium of 133, potassium 3.9, creatinine 0.80. White count 4000, hemoglobin 9.5, and platelet count of 203,000. Many thanks for allowing me to participate in your patient's care. Please feel free to contact me with any questions or concerns. The patient's hemoglobin trended down towards the end of this hospitalization, most likely secondary to hemodilution from intravenous fluids. He was advised to have his hemoglobin levels rechecked in 3 to 5 days' time. DISCHARGE DESTINATION: Home. TIME SPENT: Total amount of time spent coordinating this discharge: 33 minutes. ADDENDUM: Mr. Jeffers is being discharged home with a prescription for outpatient physical therapy. He was evaluated by Therapy Services while he was in the hospital. Job ID: [id number]
== END 2018-09-18 12:24 | disposition home or self-care (01) | DRG 641 ==
LOC: ERS 04:49 → ERHOLD 09:17 → 2SE 14:31
PROVIDERS: ADMIT Internal Medicine; ATTEND Internal Medicine
DX: E87.1 Hypo-osmolality and hyponatremia (principal); N17.9 Acute kidney failure, unspecified; M13.822 Other specified arthritis, left elbow; R07.9 Chest pain, unspecified; I25.10 Atherosclerotic heart disease of native coronary artery without angina pectoris; I10 Essential (primary) hypertension; E78.5 Hyperlipidemia, unspecified; F17.200 Nicotine dependence, unspecified, uncomplicated; F41.9 Anxiety disorder, unspecified; Z79.82 Long term (current) use of aspirin; Z79.899 Other long term (current) drug therapy; Z95.1 Presence of aortocoronary bypass graft; Z90.49 Acquired absence of other specified parts of digestive tract
CPT/HCPCS: 36415; 71045; 71275; 76770; 78452; 80048; 80053; 80306; 82436; 82570; 83880; 83930; 83935; 84133; 84300; 84484; 85025; 85379; 86780; 93005; 93017; 94760; A9500; J0153; J2270; J2405; J3010; J3411; J3475; J3490; Q9966

== ENCOUNTER 2019-05-06 16:46 | Observation (INO) | payer MEDICARE, BC ==
[~2019-05-06 16:46] MED LIST: Iopamidol-370 76% 500 ML 1 ML ONE
[2019-05-06 17:10] LABS: #Eosinphils 0.1 thou/uL (0.0-0.7); #Lymphocytes 2.5 thou/uL (1.20-3.40); #Monocytes 0.7 thou/uL (0.11-0.59); %Basophils 0.1 % (0.0-1.0); %Eosinophils 1.7 % (0.0-10.0); %Lymphocytes 29.7 % (21.0-51.0); %Monocytes 8.5 % (0.0-10.0); Hemoglobin 12.5 g/dL (14.0-18.0); Mean Corpuscular HGB CONC 34.9 g/dL (32.0-36.0); Mean Corpuscular Hemoglobin 33.6 pg (27.0-31.0); Mean Corpuscular Volume 96.3 fL (78.0-98.0); Mean Platelet Volume 6.6 fL (7.4-10.4); Platelet Count 219 thou/uL (130-400); RBC Distribution Width 12.2 % (11.5-14.5); Red Blood Cell (RBC) Count 3.72 mill/uL (4.70-6.10); White Blood Cell (WBC) Count 8.3 thou/uL (4.8-10.8)
[2019-05-06 17:16] LABS: INR-International Normal Ratio 0.9
[2019-05-06 17:17] LABS: PTT 27.4 SEC (22.9-36.1)
[2019-05-06 17:22] LABS: ALT (SGPT) 17 U/L (8-55); AST (SGOT) 24 U/L (5-34); Albumin 4.2 g/dL (3.4-4.8); Alkaline Phosphatase 58 U/L (40-110); Anion Gap 14 mmol/L (10-20); BUN (Urea Nitrogen) 10 mg/dL (8.4-25.7); Bilirubin, Total 1.2 mg/dL (0.2-1.2); CK (CPK) 152 U/L (30-200); Calc. Creatinine Clearance 0 mL/min (70-130); Calcium 9.1 mg/dL (7.8-10.44); Carbon Dioxide 25 mmol/L (23-31); Chloride 91 mmol/L (98-107); Estimated GFR-MDRD 82; Globulin 2.6 g/dL (2.4-3.5); Glucose 99 mg/dL (83-110); Potassium 3.9 mmol/L (3.5-5.1); Protein, Total 6.8 g/dL (5.8-8.1); Sodium 126 mmol/L (136-145)
[2019-05-06] MEDS ORDERED: Fentanyl 100 MCG/2 ML VIAL ONE ×2 (17:31→17:53)
[2019-05-06] MEDS ORDERED: Proparacaine 0.5% Opth 15 ML BOT ONE ×2 (17:32→17:40)
[2019-05-06 17:43] LABS: Acetaminophen Less than 6.0 mcg/mL (10.0-30.0); Alcohol Less than 10 mg/dL (Less than 10); Salicylate Less than 8.0 mg/dL (15.0-30.0)
--- NOTE | 2019-05-06 17:46 | CT ---
CT BRAIN WITHOUT CONTRAST: HISTORY: Slurred speech. Confusion. Difficulty speaking. Level I stroke. COMPARISON: None. FINDINGS: There is no evidence of an acute cortical infarction, hemorrhage, mass effect or midline shift. There is mild diminished attenuation of the periventricular white matter, which is nonspecific but likely reflective of chronic small vessel ischemic changes. The ventricular system is normal in size, shape and position. There is minimal mucosal thickening in the left maxillary antrum with tiny mucus retention cysts in t he right maxillary antrum. The mastoid air cells are clear. The calvarial structures have a normal ap pearance. IMPRESSION: 1. No acute intracranial abnormalities demonstrated. 2. Mild chronic small vessel ischemic changes. The above findings were discussed with Dr. Morris in the emergency department on 05/06/2019 at 1711 ho urs. CODE CR POS: TA
[2019-05-06] MEDS ORDERED: Ondansetron PF 4 MG/2 ML Vial ONE ×2 (18:06→18:09)
--- NOTE | 2019-05-06 18:22 | CT ---
CT ANGIOGRAM HEAD WITH IV CONTRAST AND 3D RECONSTRUCTIONS: CT ANGIOGRAM NECK WITH IV CONTRAST AND 3D RECONSTRUCTIONS: HISTORY: Level I stroke. The patient had slurred speech and confusion. COMPARISON: None. FINDINGS: Mild calcifications are seen in the visualized aortic arch. 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 There is a normal arrangement of the great vessels at the aortic arch, which are patent. The innominate and bilateral subclavian arteries are patent. The bilateral common carotid arteries are patent. Calcified atherosclerotic calcifications are seen a t the aortic bifurcation. The left internal and external carotid artery are patent. There is mild tim nosis involving the proximal right internal carotid artery but the degree of stenosis is less than 50 %. The remainder of the right internal carotid artery as well as the external carotid artery are ortiz nt. There are dense calcifications seen at the origins of each vertebral artery, which limits evaluation of the origins. The vertebral arteries are otherwise codominant and patent. The basilar artery is patent. The right posterior cerebral artery is patent. There is a type or igin of the left posterior cerebral artery which is also patent. The bilateral middle cerebral arteries and the anterior cerebral arteries are patent. There is mild a therosclerotic irregularity involving the M1 segment of the right middle cerebral artery but there is no significant narrowing present. A tiny outpouching is seen, related to the posterior communicating artery, related to an infundibulum. No aneurysm is seen within the limitations of the technique of t his exam. Limited visualized anterior upper lung zones are clear. Multilevel degenerative changes are seen in the cervical and visualized upper thoracic spine. Minimal mucosal thickening is seen in each maxillary antrum. The thyroid gland, parotid gland and bilateral submandibular glands demonstrate a normal CT appearanc e. Prevertebral soft tissues have a normal appearance. IMPRESSION: 1. Dense atherosclerotic vascular calcifications involving the right proximal internal carotid artery with the degree of stenosis approaching 50%. 2. The left internal carotid artery is patent. 3. Obscuration of the origins of each vertebral artery, but the vertebral arteries are otherwise ortiz nt. 4. No focal stenosis or branch occlusion is seen involving the mentasta of [place] or vertebrobasilar sy stem. POS: [facility]
--- NOTE | 2019-05-06 18:38 | RAD ---
PORTABLE CHEST: 05/06/2019 PROVIDED CLINICAL HISTORY: Altered mental status. COMPARISON: 09/14/2018 FINDINGS: The cardiac and mediastinal silhouette is within normal limits. Median sternotomy changes are seen. N o focal consolidation, pleural fluid or pneumothorax apparent. The left costophrenic angle is incompl etely included on this examination. IMPRESSION: No evidence for an acute cardiopulmonary process. POS: [facility]
--- NOTE | 2019-05-06 18:44 | PDOC.FPRHP ---
- History of Present Illness Chief Complaint: Acute onset of slurred speech History of Present Illness: Mr. Jeffers is a 78yoM who presents for evaluation of headache and concerning changes with his speech. He states he was at [employer] and had sudden onset of a bad headache, he states it's one of the worst headaches he's had. He has a history of cluster headaches in the past. He also had difficulty standing up and getting back to his truck, however he drove himself back home. He states that his headache continued to worsen when he got home. He had difficulty with balance and a hard time expressing his thoughts. His family reports stuttering and non-sensical speech. He was not oriented to person, place, or time. He denies history of stroke or similar symptoms. He had a couple episodes of emesis once he arrived to the ED. His headache has improved, but still hurts some. ED Course: 500mL bolus NS, 10 decadron, 8 zofran, 10 reglan, 50 fentanyl, 30 toradol, asa 324 - Allergies/Adverse Reactions Allergies Allergy/AdvReac Type Severity Reaction Status Date / Time No Known Drug Allergies Allergy Verified 09/14/18 16:48 - Home Medications Medication Instructions Recorded Confirmed Type Amitriptyline HCl 2 tab PO ASDIR 09/14/18 09/14/18 History Aspirin [Ecotrin Low Strength] 1 tab PO DAILY 09/14/18 09/14/18 History Atorvastatin Calcium [Lipitor] 1 tab PO QPM 09/14/18 09/14/18 History Lorazepam [Ativan] 1 tab PO DAILY 09/14/18 09/14/18 History Metoprolol Succinate 1 tab PO DAILY 09/14/18 09/14/18 History Omeprazole 1 tab PO QPM 09/14/18 09/14/18 History Testosterone Cypionate [Testone 1 applic IM ASDIR 09/14/18 09/14/18 History Cik] - History PMHx: HTN CAD, s/p CABG HLD GERD BPH vs h/o prostate cancer PSHx: Recent melanoma removal of left ear CABG (2002) Prostate surgery Cholecystectomy FHx: Unclear, family states HTN runs in family. Social: Dips tobacco Drinks 3-6 beers q night Denies illicit drug use - Review of Systems General: denies: fever/chills, weight/appetite/sleep changes, night sweats Eyes: denies: eye pain, vision changes ENT: denies: nasal congestion Respiratory: reports: cough (dry x 2 years), shortness of breath. denies: congestion Cardiovascular: reports: paroxysmal nocturnal dyspnea. denies: chest pain, palpitation, edema Gastrointestinal: reports: nausea, vomiting. denies: diarrhea, constipation, abdominal pain Genitourinary: denies: incontinence, dysuria, polyuria Skin: reports: lesions (melanoma taken off ear 05/02/2019.). denies: rashes Musculoskeletal: denies: pain, tenderness, stiffness Neurological: reports: weakness, other (possible LOC). denies: numbness, syncope, seizure Psychological: reports: anxiety - Vital signs BP: 172/79, MAP: 110, Pulse: 78, Resp: 19 (Non-Labored), Temp: 97.9 (Oral), Pain : 9, O2 sat: 98% Weight 88kg - Physical Exam Constitutional: NAD, awake, alert and oriented, well developed HEENT: normocephalic and atraumatic, PERRLA, EOMI, conjunctiva clear, grossly normal vision, grossly normal hearing, MMM, oropharynx clear Neck: supple, trachea midline, no LAD, no thyromegaly Heart: RRR, normal S1/S2, no murmurs/rubs/gallops, pulses present, no edema Lungs: CTAB, no respiratory distress, good air movement, no rales/rhonchi, no wheezing Abdomen: soft, non-tender, bowel sounds present Musculoskeletal: normal structure, normal tone, ROM grossly normal Neurological: no focal deficit, CN II-XII intact, normal sensation -Neurological: Cerebellar exam: Moderate difficulty with finger to nose, however able to do slowly. Cannot perform heel to bhakta (poor understanding) Negative pronator drift. Strength 5/5 Patient is unsteady, did not test gait. Skin: no rash/lesions, good turgor, capillary refill <2 seconds Heme/Lymphatic: no unusual bruising or bleeding, no purpura, no petechia Psychiatric: normal mood and affect, good judgment and insight, intact recent and remote memory FMR H&P: Results - Labs Result Diagrams: 05/06/19 16:58 05/07/19 04:34 Lab results: WBC 8.3 thou/uL (4.8-10.8) 05/06/19 16:58 Hgb 12.5 g/dL (14.0-18.0) L 05/06/19 16:58 Hct 35.8 % (42.0-52.0) L 05/06/19 16:58 MCV 96.3 fL (78.0-98.0) 05/06/19 16:58 Plt Count 219 thou/uL (130-400) 05/06/19 16:58 Neutrophils % 60.0 % (42.0-75.0) 05/06/19 16:58 Sodium 126 mmol/L (136-145) L 05/06/19 16:58 Potassium 3.9 mmol/L (3.5-5.1) 05/06/19 16:58 Chloride 91 mmol/L (98-107) L 05/06/19 16:58 Carbon Dioxide 25 mmol/L (23-31) 05/06/19 16:58 BUN 10 mg/dL (8.4-25.7) 05/06/19 16:58 Creatinine 0.90 mg/dL (0.7-1.3) 05/06/19 16:58 Glucose 99 mg/dL (83-110) 05/06/19 16:58 Calcium 9.1 mg/dL (7.8-10.44) 05/06/19 16:58 Total Bilirubin 1.2 mg/dL (0.2-1.2) 05/06/19 16:58 AST 24 U/L (5-34) 05/06/19 16:58 ALT 17 U/L (8-55) 05/06/19 16:58 Alkaline Phosphatase 58 U/L (40-110) 05/06/19 16:58 Ammonia 13 umol/L (18-72) L 05/06/19 17:25 Creatine Kinase 152 U/L (30-200) 05/06/19 16:58 B-Natriuretic Peptide 39.1 pg/mL (0-100) 05/06/19 16:58 Serum Total Protein 6.8 g/dL (5.8-8.1) 05/06/19 16:58 Albumin 4.2 g/dL (3.4-4.8) 05/06/19 16:58 Lipase 49 U/L (8-78) 05/06/19 16:58 - Radiology Interpretation CT scan - head Status: report reviewed by me (IMPRESSION: 1. Dense atherosclerotic vascular calcifications involving the right proximal internal carotid artery with the degree of stenosis approaching 50%. 2. The left internal carotid artery is patent. 3. Obscuration of the origins of each vertebral artery, but the vertebral arteries are otherwise ortiz nt. 4. No focal stenosis or branch occlusion is seen involving the [place] or vertebrobasilar system. CT head: IMPRESSION: 1. No acute intracranial abnormalities demonstrated. 2. Mild chronic small vessel ischemic changes.) FMR H&P: A/P - Problem List (1) Headache Current Visit: Yes Status: Acute Code(s): R51 - HEADACHE (2) CVA (cerebral vascular accident) Current Visit: Yes Status: Suspected Code(s): I63.9 - CEREBRAL INFARCTION, UNSPECIFIED (3) Hyponatremia Current Visit: No Status: Chronic Code(s): E87.1 - HYPO-OSMOLALITY AND HYPONATREMIA Comment: sodium improved to 126 today, continue to monitor lytes (4) HTN (hypertension) Current Visit: No Status: Chronic Code(s): I10 - ESSENTIAL (PRIMARY) HYPERTENSION Comment: controlled - Plan CVA rule out -Acute onset of symptoms around 12:00pm 1/6 of dysarthria and altered speech. -Symptoms are slowly improving -CT angio head and neck showed no occlusion or severe focal stenosis, CT head showed no acute large intracranial bleed. -Will admit to the stroke floor, plan for MRI in the morning -Patient is on low intensity statin, will increase dose. -Daily ASA -Permissive HTN overnight (prn for SBP >220/110) -FLP ordered for the morning HTN -Patient is taking metoprolol at home. Recommend allowing permissive HTN overnight and restarting home meds tomorrow. -Will monitor Anemia -Labs pending. Has not previously been worked up. Anxiety -patient takes alprazolam prn at night Prostatic hyperplasia -family is unclear if he had history of prostate cancer or BPH and he does not wish to discuss with them present. -After several attempts in the ED he was able to void in the urinal. GERD -continue PPI CAD -s/p 4 vessel CABG -On statin therapy Hyponatremia -possibly chronic. On NS. Will recheck BMP in the morning Deconditioning -Patient reports mechanical fall last January/March and family states he has been increasingly unsteady since that time. -Discussed possibility of d/c to inpatient rehab as an option, family and patient are interested. -PT/OT consulted. Disposition/LOS: Code: Full VTE: SCDs Dispo: Stable, observation, will likely stay <48 hours. FMR H&P: Upper Level - Pertinent history 78 year old male with PMH HTN, HLD, CAD s/p CABG, anxiety, and prostate problems that presents with severe headache and speech disturbance onset of approximately 12:00 pm this afternoon. Patient reports he was at [facility] when he started to develop a headache. The headache progressed to the point that he describes it as the "worst headache of his life". He got weak in the legs and essentially fell to the ground. Patient reports that he was able to drive home, but he took the "back roads" home. He made it home and was able to call his daughter. Upon arrival to the house, the reports that he was out of it. He was then taken to the ED for evaluation. Patient still endorses headache, although he reports it is much improved. Patient was given fentanyl and toradol for headache in ED. Patient denies chest pain, shortness of breath, cough, chest pain. He endorses generalized weakness, but he denies focal weakness. He reports changes in speech and difficulty with word finding. reports that he was unable to make sense of his words. This has improved since arrival to ED , but he still has confused speech. - Pertinent findings General: Alert and oriented x3. No acute distress. HEENT: Dry MMM. Atraumatic. Card: RRR, no appreciable murmurs Resp: CTA bilaterally Abdom: Soft, non-tender Skin: No lesions Ext: No cyanosis or edema Neuro: Left facial droop, CN II-XII intact, strength 5/5 in upper and lower extremities - Plan Date/Time: 05/06/191843 ISruthi, have evaluated this patient and agree with findings/plan as outlined by event planning intern resident. Pertinent changes/additions are listed here. TIA vs. CVA - CT brain: Mild chronic small vessel ischemic changes - CTA head/neck: Right proximal internal carotid stenosis approaching 50%; consider as potential contributor - CXR: no acute cardiopulmonary process - ASA 325 mg given in ED - ABCD risk score: 5 and TIA/CVA on ASA; would start dual antiplatelet therapy with ASA 325 mg and Clopidogrel (loading dose 300 mg, followed by 75 mg x21 days ); will wait to start dual antiplatelet therapy until MRI performed - Will obtain echo - CBC, PT/PTT/INR, CMP, FLP, and ESR ordered - BP goals: <220/120; lower BP by 15% during first 24 hours - Will continue high intensity statin - Given "worst headache of life", some concern for SAH, particularly in setting of hyponatremia (although this appears chronic). CT brain negative. Discussion had regarding LP to further assess. This was decided against at this time given negative CTA head. - Dysphagia screen prior to diet - VTE ppx with SCD's. Can consider pharmacologic VTE ppx within 48 hours if restricted mobility unless proceeding with dual antiplatelet therapy as discussed above. - TSH pending Deconditioning - Inpatient rehab consult placed Moderate hyponatremia - Na 126, appears chronic - Would continue to monitor - Consider salt tablets - NS at 75 mL/hr (uncertain if HF) - Serum osm pending to assess if hypotonic/hypertonic hyponatremia - Urine Na and urine Chloride pending to further evaluate, urine osm also pending - TSH pending HTN - Will allow for permissive HTN; see above Chronic normocytic anemia - Will get iron studies, B12, folate CAD s/p CABG - Continue home medications; will hold BP medications to allow for permissive HTN HLD - Continue statin; will ensure high intensity GERD - Continue home medications BPH vs h/o prostate cancer - Higher risk for thrombotic events if active cancer is present; would look into this further DVT PPX: SCD's Code status: Full Dispo: Obs on stroke. Anticipate LOS <48 hours. Addendum - Attending - Attending Attestation Date/Time: 05/07/19 5539 I personally evaluated the patient and discussed the management with Dr. Linton on 05/06/2019 I agree with the History, Examination, Assessment and Plan documented above with any addition or exceptions noted below - 78 yo male with h/o HTN, CAD s/p CABG, and HLD presented with GRANT and confusion. Patient reports he was at [facility] when he developed a GRANT and felt weak. He was able to get home but when family checked on him they found he was confused, had slurred speech and was brought to the ER. Currently he reports that his GRANT is improved. Denies any weakness in extremities. PMH/PSH/Meds/SH reviewed and agree with resident's findings. Exam repeated by me and agree with resident's findings. Labs: WBC= 8.3 , H/H =12.5/35.8, Upr=853, Vu=539, K=3.9, Cl=91, CO2=25, BUN/Cr=10/0.90, Gluc=99 , trop I < 0.010. UDS- negative CTA: 1. Dense atherosclerotic vascular calcifications involving the right proximal internal carotid artery with the degree of stenosis approaching 50%. 2. The left internal carotid artery is patent. 3. Obscuration of the origins of each vertebral artery, but the vertebral arteries are otherwise ortiz nt. 4. No focal stenosis or branch occlusion is seen involving the [place] or vertebrobasilar system. CT head: IMPRESSION: 1. No acute intracranial abnormalities demonstrated. 2. Mild chronic small vessel ischemic changes. A/P: 1) GRANT/slurred speech/confusion- now improved; MRI in AM; permissive hypertension. Continue ASA. PT/OT/ST 2) HTN- continue to monitor 3) HLD- high dose statin
[2019-05-06] MEDS ORDERED: Metoclopramide HCl 10 MG/2 ML VIAL ONE (18:46)
[2019-05-06] MEDS ORDERED: Aspirin Chewable 81 MG TAB ONE (18:46)
[2019-05-06] MEDS ORDERED: Dexamethasone 4 mg/ml Vial ONE (18:46)
[2019-05-06] MEDS ORDERED: Ketorolac Tromethamine 30 MG/ML VIAL ONE (18:52)
[2019-05-06] MEDS ORDERED: hydrALAZINE 20 MG/ML VIAL SLOW IVP PRN (19:48)
[2019-05-06] MEDS ORDERED: Acetaminophen 325 MG TAB PO PRN (19:48)
[2019-05-06] MEDS ORDERED: Ondansetron ODT 4 MG TAB PO PRN (19:48)
[2019-05-06 20:24] LABS: Bilirubin Negative (Negative); Blood, Urine Negative (Negative); Clarity Clear (Clear); Glucose, Urine (Dipstick) Normal (Negative); Leukocyte Negative Leu/uL (Negative); Nitrite Negative (Negative); Protein, Urine (Dipstick) Negative (Neg-Trace); Urobilinogen Normal mg/dL (Less than 2)
[2019-05-06] MEDS ORDERED: Acetaminophen 325 MG TAB ONE (20:25)
[2019-05-06 20:34] LABS: Amphetamine Not Detected (NotDetected); Barbiturates Screen Not Detected (NotDetected); Benzodiazepine Screen Not Detected (NotDetected); Cocaine Metabolite Screen Not Detected (NotDetected); Medtox Control Line Valid? VALID (VALID); Medtox Reader # READER 1; Methadone Not Detected (NotDetected); Methamphetamine Not Detected (NotDetected); Opiate Screen Not Detected (NotDetected); Oxycodone Screen Not Detected (NotDetected); Phencyclidine (PCP) Not Detected (NotDetected); THC/Cannabinoid Screen Not Detected (NotDetected); Tricyclic Screen Not Detected (NotDetected)
[2019-05-07 01:54] VITALS: BMI 24.4
[2019-05-07] MEDS: Atorvastatin Calcium 40 MG TAB PO SCH ×2 (05:17→20:54)
[2019-05-07 05:19] LABS: Hemoglobin A1c 5.3 % (4.0-6.0)
--- NOTE | 2019-05-07 05:22 | PDOC.FPRHP ---
- Allergies/Adverse Reactions Allergies Allergy/AdvReac Type Severity Reaction Status Date / Time No Known Drug Allergies Allergy Verified 09/14/18 16:48 - Home Medications Medication Instructions Recorded Confirmed Type Amitriptyline HCl 2 tab PO ASDIR 09/14/18 09/14/18 History Aspirin [Ecotrin Low Strength] 1 tab PO DAILY 09/14/18 09/14/18 History Atorvastatin Calcium [Lipitor] 1 tab PO QPM 09/14/18 09/14/18 History Lorazepam [Ativan] 1 tab PO DAILY 09/14/18 09/14/18 History Metoprolol Succinate 1 tab PO DAILY 09/14/18 09/14/18 History Omeprazole 1 tab PO QPM 09/14/18 09/14/18 History Testosterone Cypionate [Testone 1 applic IM ASDIR 09/14/18 09/14/18 History Cik] - History PMHx: PSHx: FHx: Social: - Vital signs BP: [] HR: [] RR: [] Tmax: [] Pox: []% on [] Wt: [] FMR H&P: Results - Labs Result Diagrams: 05/06/19 16:58 05/07/19 04:34 Lab results: WBC 8.3 thou/uL (4.8-10.8) 05/06/19 16:58 Hgb 12.5 g/dL (14.0-18.0) L 05/06/19 16:58 Hct 35.8 % (42.0-52.0) L 05/06/19 16:58 MCV 96.3 fL (78.0-98.0) 05/06/19 16:58 Plt Count 219 thou/uL (130-400) 05/06/19 16:58 Neutrophils % 60.0 % (42.0-75.0) 05/06/19 16:58 Sodium 126 mmol/L (136-145) L 05/06/19 16:58 Potassium 3.9 mmol/L (3.5-5.1) 05/06/19 16:58 Chloride 91 mmol/L (98-107) L 05/06/19 16:58 Carbon Dioxide 25 mmol/L (23-31) 05/06/19 16:58 BUN 10 mg/dL (8.4-25.7) 05/06/19 16:58 Creatinine 0.90 mg/dL (0.7-1.3) 05/06/19 16:58 Glucose 99 mg/dL (83-110) 05/06/19 16:58 Calcium 9.1 mg/dL (7.8-10.44) 05/06/19 16:58 Total Bilirubin 1.2 mg/dL (0.2-1.2) 05/06/19 16:58 AST 24 U/L (5-34) 05/06/19 16:58 ALT 17 U/L (8-55) 05/06/19 16:58 Alkaline Phosphatase 58 U/L (40-110) 05/06/19 16:58 Ammonia 13 umol/L (18-72) L 05/06/19 17:25 Creatine Kinase 152 U/L (30-200) 05/06/19 16:58 B-Natriuretic Peptide 39.1 pg/mL (0-100) 05/06/19 16:58 Serum Total Protein 6.8 g/dL (5.8-8.1) 05/06/19 16:58 Albumin 4.2 g/dL (3.4-4.8) 05/06/19 16:58 Lipase 49 U/L (8-78) 05/06/19 16:58 Urine Ketones Trace mg/dL (Negative) A 05/06/19 20:10 Urine Blood Negative (Negative) 05/06/19 20:10 Urine Nitrite Negative (Negative) 05/06/19 20:10 Ur Leukocyte Esterase Negative Lino/uL (Negative) 05/06/19 20:10 FMR H&P: A/P - Problem List (1) GERD (gastroesophageal reflux disease) Current Visit: Yes Status: Chronic Code(s): K21.9 - GASTRO-ESOPHAGEAL REFLUX DISEASE WITHOUT ESOPHAGITIS (2) CAD (coronary artery disease) Current Visit: Yes Status: Chronic Code(s): I25.10 - ATHSCL HEART DISEASE OF [place] CORONARY ARTERY W/O ANG PCTRS (3) Anemia Current Visit: Yes Status: Chronic Code(s): D64.9 - ANEMIA, UNSPECIFIED (4) Prostatic hyperplasia Current Visit: Yes Status: Chronic Code(s): N40.0 - BENIGN PROSTATIC HYPERPLASIA WITHOUT LOWER URINRY TRACT SYMP (5) Headache Current Visit: Yes Status: Acute Code(s): R51 - HEADACHE (6) Hyponatremia Current Visit: No Status: Chronic Code(s): E87.1 - HYPO-OSMOLALITY AND HYPONATREMIA Comment: sodium improved to 126 today, continue to monitor lytes (7) HTN (hypertension) Current Visit: No Status: Chronic Code(s): I10 - ESSENTIAL (PRIMARY) HYPERTENSION Comment: controlled - Plan CVA rule out -Acute onset of symptoms around 12:00pm 1/6 of dysarthria and altered speech. -Symptoms are slowly improving -CT angio head and neck showed no occlusion or severe focal stenosis, CT head showed no acute large intracranial bleed. -Will admit to the stroke floor, plan for MRI in the morning -Patient is on low intensity statin, dose increased -Daily ASA -FLP: triglycerides 33, total chol 122, LDL 66, HDL 49 -THS: 0.842 -A1C: 5.3 HTN -Patient is taking metoprolol at home. Recommend allowing permissive HTN overnight and restarting home meds tomorrow. -Will monitor Anemia -Labs pending. Has not previously been worked up. Anxiety -patient takes alprazolam prn at night Prostatic hyperplasia -family is unclear if he had history of prostate cancer or BPH and he does not wish to discuss with them present. -After several attempts in the ED he was able to void in the urinal. GERD -continue PPI CAD -s/p 4 vessel CABG -On statin therapy Hyponatremia -likely chronic. On NS. -sodium 126>127 Deconditioning -Patient reports mechanical fall last January/March and family states he has been increasingly unsteady since that time. -Discussed possibility of d/c to inpatient rehab as an option, family and patient are interested. -PT/OT consulted. Disposition/LOS: Code: Full VTE: SCDs Dispo: Stable, observation, will likely stay <48 hours. FMR H&P: Upper Level - Plan Date/Time: 05/07/19 0520 I, [], have evaluated this patient and agree with findings/plan as outlined by academic intern resident. Pertinent changes/additions are listed here.
[2019-05-07 05:36] LABS: Anion Gap 11 mmol/L (10-20); BUN (Urea Nitrogen) 11 mg/dL (8.4-25.7); Calc. Creatinine Clearance 79 mL/min (70-130); Calcium 8.4 mg/dL (7.8-10.44); Carbon Dioxide 26 mmol/L (23-31); Cardiac Risk 2.5 (Less than 4.5); Chloride 95 mmol/L (98-107); Cholesterol 122 mg/dl (< 200 Desired); Estimated GFR-MDRD 80; Glucose 164 mg/dL (83-110); HDL Cholesterol 49 mg/dL (>60 Neg Risk); Iron 58 ug/dL (65-175); Iron Binding Capacity, Total 246 mcg/dL (261-462); LDL Cholesterol, Calculated 66 mg/dL; Potassium 4.6 mmol/L (3.5-5.1); Sodium 127 mmol/L (136-145); Triglycerides 33 mg/dL (Less than 150)
[2019-05-07 05:55] LABS: Ferritin 301.91 ng/mL (22-322)
--- NOTE | 2019-05-07 07:43 | PDOC.FM ---
- Subjective Subjective: Patient resting comfortably this morning. Ya reported that he had just fallen asleep. She states that later in the night he had reported that his headache had resolved. - Objective Vital Signs & Weight: Vital Signs (12 hours) Temp Pulse Resp BP Pulse Ox 05/07/19 07:25 97.8 F 83 15 149/94 H 97 05/07/19 03:55 98.2 F 80 16 110/65 96 05/07/19 01:00 98.7 F 70 16 124/76 97 Weight Weight 83.915 kg I&O: 05/06/19 05/07/19 05/08/19 06:59 06:59 06:59 Intake Total 375 Balance 375 Result Diagrams: 05/06/19 16:58 05/07/19 04:34 EKG Reviewed by me: Yes (sinus 70s-80s) Phys Exam - Physical Examination Constitutional: NAD HEENT: moist MMs Neck: supple, full ROM Respiratory: no wheezing, clear to auscultation bilateral Cardiovascular: RRR, no significant murmur Gastrointestinal: soft, positive bowel sounds Musculoskeletal: no edema, pulses present Skin: no rash, normal turgor Dx/Plan (1) GERD (gastroesophageal reflux disease) Code(s): K21.9 - GASTRO-ESOPHAGEAL REFLUX DISEASE WITHOUT ESOPHAGITIS Status: Chronic (2) CAD (coronary artery disease) Code(s): I25.10 - ATHSCL HEART DISEASE OF [place] CORONARY ARTERY W/O ANG PCTRS Status: Chronic (3) Anemia Code(s): D64.9 - ANEMIA, UNSPECIFIED Status: Chronic (4) Prostatic hyperplasia Code(s): N40.0 - BENIGN PROSTATIC HYPERPLASIA WITHOUT LOWER URINRY TRACT SYMP Status: Chronic (5) Headache Code(s): R51 - HEADACHE Status: Acute (6) Hyponatremia Code(s): E87.1 - HYPO-OSMOLALITY AND HYPONATREMIA Status: Chronic (7) HTN (hypertension) Code(s): I10 - ESSENTIAL (PRIMARY) HYPERTENSION Status: Chronic - Plan Plan: CVA vs TIA vs Cluster Headache -Acute onset of symptoms around 12:00pm 1/6 of dysarthria and altered speech. -Per patient's fiancee patient's headache resolved last night; sleeping soundly this morning -CT angio head and neck showed no occlusion or severe focal stenosis, CT head showed no acute large intracranial bleed. -Patient is on low intensity statin, dose increased -Daily ASA -FLP: triglycerides 33, total chol 122, LDL 66, HDL 49 -THS: 0.842 -A1C: 5.3 -MRI and echo today HTN -Patient is taking metoprolol at home, will restart today -Will monitor Anemia -Hgb 12.5 -iron low 58 -TIBC low 246 -ferritin wnl 300 -likely anemia of chronic disease Anxiety -patient takes alprazolam prn at night Prostatic hyperplasia -family is unclear if he had history of prostate cancer or BPH and he does not wish to discuss with them present. -After several attempts in the ED he was able to void in the urinal. GERD -continue PPI CAD -s/p 4 vessel CABG -On statin therapy Hyponatremia -likely chronic. On NS. -sodium 126>127 -serum osm 271, slightly low -urine studies pending, will follow Deconditioning -Patient reports mechanical fall last January/March and family states he has been increasingly unsteady since that time. -Discussed possibility of d/c to inpatient rehab as an option, family and patient are interested. -PT/OT consulted. Disposition/LOS: Code: Full VTE: SCDs Dispo: Stable, obs for tia/cva workup. Echo and MRI pending. PT/OT and post acute screening for possible inpt rehab
[2019-05-07] MEDS ORDERED: Losartan 25 MG TAB PO SCH (09:00)
[2019-05-07] MEDS ORDERED: Prevnar 13-Val Conj/PF 0.5 ML SYRINGE IM ONE (09:00)
[2019-05-07] MEDS ORDERED: FLU VACC TS2019-20(65YR UP)/PF 180 MCG/0.5 ML SYRINGE IM ONE (09:00)
[2019-05-07] MEDS ORDERED: Aspirin 81 mg Enteric Coated Tablet PO SCH (09:00)
[2019-05-07] MEDS: Dicyclomine 20 MG TAB PO SCH (09:47)
[2019-05-07] MEDS: Aspirin 325 mg Enteric Coated Tablet PO SCH (09:47)
[2019-05-07] MEDS: Doxycycline 100 MG CAP PO SCH ×2 (09:52→20:54)
[2019-05-07] MEDS: Sodium Chloride 0.9% 1,000 ML IV SCH ×2 (09:57→13:39)
[2019-05-07] MEDS ORDERED: Clopidogrel Bisulfate 300 MG TAB PO SCH (10:30)
--- NOTE | 2019-05-07 10:59 | PRG ---
DATE OF SERVICE: 05/07/2019 ADDENDUM: This is an addendum to the note of Dr. Dina Cormier. I have examined Mr. Jeffers and discussed the case with Dr. Dina Cormier. I agree with her assessment and plan. Mr. Jeffers is a pleasant 78-year-old man, who presented yesterday with a very severe headache suggestive of subarachnoid bleed. However, imaging did not show any evidence of bleed, and this morning, he looks and feels much better. His headache was associated with disorientation and nonsensical speech, which has since also cleared. His studies so far include a brain CT that concluded there were no acute intracranial abnormalities demonstrated. Mild chronic small-vessel ischemic changes. He also had a CTA of the head and neck with the conclusion that there was dense atherosclerotic vascular calcification involving the right proximal internal carotid artery with stenosis of approximately 50%. The left internal carotid artery was patent. There was obscuration of the origins of each vertebral artery, but the vertebral arteries are otherwise patent. There was no focal stenosis or branch occlusion seen involving the [place] or the vertebrobasilar system. We now have the patient on aspirin and a statin to cover the possibility that this was a TIA, although it could have been an exacerbation of his cluster headache syndrome. In the event, this morning, he is back to normal and ready for either rehab or possible discharge. Job ID: [id number]
--- NOTE | 2019-05-07 11:36 | MRI ---
Brain MRI without contrast: 05/07/2019 COMPARISON: None HISTORY: Speech difficulties, bilateral leg weakness, assess for acute infarction TECHNIQUE: Multiplanar multisequence MR imaging of the brain obtained without contrast FINDINGS: The diffusion weighted imaging demonstrates no evidence for acute infarction. The axial gra dient echo imaging demonstrates no evidence for intracranial hemorrhage. Imaged paranasal sinuses and mastoid air cells are grossly unremarkable. Regional bone marrow signal intensity is grossly unre markable as well. There are numerous subcentimeter foci of increased T2 and FLAIR signal within the periventricular whi te matter suggesting small vessel disease. IMPRESSION: Evidence of small vessel disease. No MR evidence of acute infarction or intracranial hemo rrhage.
[2019-05-07] MEDS ORDERED: Docusate 100 MG CAP PO PRN (16:16)
[2019-05-07] MEDS ORDERED: Lorazepam 0.5 MG TAB PO SCH (23:30)
--- NOTE | 2019-05-08 05:29 | PDOC.FM ---
- Subjective Subjective: Patient doing well this morning. Speech at baseline, headache resolved. Discussed that we are looking into HH/PT/OT outpatient for patient at this time as he was not accepted to inpatient rehab, patient agreeable with plan of care. - Objective Vital Signs & Weight: Vital Signs (12 hours) Temp Pulse Resp BP Pulse Ox 05/08/19 04:00 98 F 78 16 130/81 97 05/08/19 00:00 97.9 F 72 16 133/79 96 05/07/19 20:00 98.1 F 74 16 119/71 97 Weight Admit Weight 83.915 kg Weight 83.915 kg I&O: 05/06/19 05/07/19 05/08/19 06:59 06:59 06:59 Intake Total 375 1000 Balance 375 1000 Result Diagrams: 05/06/19 16:58 05/07/19 04:34 Phys Exam - Physical Examination Constitutional: NAD HEENT: moist MMs, sclera anicteric L ear bandaging intact Neck: supple, full ROM Respiratory: no wheezing, clear to auscultation bilateral Cardiovascular: RRR, no significant murmur Gastrointestinal: soft, non-tender Musculoskeletal: no edema, pulses present Neurological: moves all 4 limbs Psychiatric: normal affect, A&O x 3 Skin: normal turgor Dx/Plan (1) GERD (gastroesophageal reflux disease) Code(s): K21.9 - GASTRO-ESOPHAGEAL REFLUX DISEASE WITHOUT ESOPHAGITIS Status: Chronic (2) CAD (coronary artery disease) Code(s): I25.10 - ATHSCL HEART DISEASE OF [place] CORONARY ARTERY W/O ANG PCTRS Status: Chronic (3) Anemia Code(s): D64.9 - ANEMIA, UNSPECIFIED Status: Chronic (4) Prostatic hyperplasia Code(s): N40.0 - BENIGN PROSTATIC HYPERPLASIA WITHOUT LOWER URINRY TRACT SYMP Status: Chronic (5) Headache Code(s): R51 - HEADACHE Status: Acute (6) Hyponatremia Code(s): E87.1 - HYPO-OSMOLALITY AND HYPONATREMIA Status: Chronic (7) HTN (hypertension) Code(s): I10 - ESSENTIAL (PRIMARY) HYPERTENSION Status: Chronic - Plan Plan: TIA vs Cluster Headache -Acute onset of symptoms around 12:00pm 1/6 of dysarthria and altered speech. -Per patient's fiancee patient's headache resolved last night; sleeping soundly this morning -CT angio head and neck showed no occlusion or severe focal stenosis, CT head showed no acute large intracranial bleed. -Patient is on low intensity statin, dose increased -Daily ASA -FLP: triglycerides 33, total chol 122, LDL 66, HDL 49 -THS: 0.842 -A1C: 5.3 -MRI: small vessel disease without evidence for acute infarct or hemorrhage -Echo: EF 55-60%, mild increase in pulmonary artery pressure -plavix started 05/08 -rehab rejected patient; case management to help organize HH and outpatient PT/ OT HTN -Patient is taking metoprolol and losartan at home -Will monitor Anemia -Hgb 12.5 -iron low 58 -TIBC low 246 -ferritin wnl 300 -likely anemia of chronic disease Anxiety -patient takes alprazolam prn at night Prostatic hyperplasia -family is unclear if he had history of prostate cancer or BPH and he does not wish to discuss with them present. -After several attempts in the ED he was able to void in the urinal. GERD -continue PPI CAD -s/p 4 vessel CABG -On statin therapy Hyponatremia -likely chronic. On NS. -sodium 126>127 -serum osm 271, slightly low -urine studies: urine sodium <20, urine osm 349 -likely slight hypovolemia Deconditioning -Patient reports mechanical fall last January/March and family states he has been increasingly unsteady since that time. -PT/OT consulted, rec rehab vs HH -rehab declined patient -CM to help organize HH/outpatient PT/OT Disposition/LOS: Code: Full VTE: SCDs Dispo: Stable, CM to organize HH and PT/OT outpatient; likely d/c this afternoon
[2019-05-08] MEDS: Doxycycline 100 MG CAP PO SCH (08:46)
[2019-05-08] MEDS: Aspirin 325 mg Enteric Coated Tablet PO SCH (08:46)
[2019-05-08] MEDS ORDERED: Losartan 25 MG TAB PO SCH (09:00)
[2019-05-08] MEDS ORDERED: Clopidogrel Bisulfate 75 MG TAB PO SCH (09:00)
[2019-05-08] MEDS ORDERED: Polyethylene Glycol 3350 17 GM Packet PO SCH (09:00)
[2019-05-08] MEDS: Dicyclomine 20 MG TAB PO SCH (09:12)
--- NOTE | 2019-05-08 11:27 | PRG ---
DATE OF SERVICE: 05/08/2019 Mr. Jeffers is resting in bed this morning, in no acute distress. He did have a brain MRI yesterday that showed evidence of small-vessel disease. There was no evidence of an acute infarct or intracranial hemorrhage. It is likely that Mr. Jeffers suffered from one of his cluster headaches, but does not show any evidence of [employer] injury or damage. This also could possibly have been a TIA and he will be placed on aspirin and atorvastatin as well. Otherwise, he is ready for placement or discharge for followup with his PCP. Job ID: [id number]
[2019-05-08 11:47] VITALS: BP 134/86; TEMP 97.5
[2019-05-08] MEDS ORDERED: Lorazepam 0.5 MG TAB PO SCH ×2 (21:00)
[2019-05-09 16:09] LABS: Hematocrit 31.8 % (37.5-51.0); RBC Folate Test Component 1906 ng/mL (>498)
--- NOTE | 2019-05-10 09:28 | DIS ---
DATE OF ADMISSION: 05/06/2019 DATE OF DISCHARGE: 05/08/2019 ADMITTING RESIDENT: Xiomara Linton MD ADMITTING ATTENDING: Alisha Ruiz MD DISCHARGE ATTENDING: Yaron aC MD DISCHARGE RESIDENT: Dina Cormier MD CONSULTS: 1. PT/OT. 2. Wound care. PROCEDURES: None. IMAGIN. Brain CT: No acute intracranial abnormalities demonstrated. Mild chronic small-vessel ischemic changes. 2. CT angiography: Dense atherosclerotic vascular calcification involving the right proximal internal carotid artery with a stenosis approaching 50%. The left internal carotid artery is patent. Obscuration of the origins of each vertebral artery, but the vertebral arteries are otherwise patent. No focal stenosis or branch occlusion is seen involving the [place] or vertebrobasilar system. 3. Chest x-ray: No evidence for an acute cardiopulmonary process. 4. Brain MRI: Evidence of small-vessel disease. No MR evidence of acute infarction or intracranial hemorrhage. 5. Echo: EF was 55% to 60%. Mild concentric LVH. Left atrium is mild to moderately dilated. Mild mitral regurgitation. Mildly calcified aortic valve. Mild aortic insufficiency. No aortic stenosis. Mild to moderate tricuspid regurgitation. Mildly elevated pulmonary artery pressure. PRIMARY DIAGNOSIS: Transient ischemic attack versus cluster headaches. SECONDARY DIAGNOSES: 1. Hypertension. 2. Anxiety. 3. Prostatic hyperplasia. 4. Gastroesophageal reflux disease. 5. Coronary artery disease. 6. Deconditioning. 7. Hyponatremia. DISCHARGE MEDICATIONS: 1. 325 mg aspirin p.o. daily. 2. 80 mg Atorvastatin p.o. at bedtime. 3. 75 mg Plavix p.o. daily. 4. 20 mg Bentyl p.o. daily. 5. 100 mg doxycycline p.o. b.i.d. 6. One tablet lorazepam 0.5 mg p.o. at bedtime. 7. 100 mg losartan p.o. daily. 8. 50 mg metoprolol succinate p.o. daily. 9. 20 mg omeprazole p.o. q.p.m. DISCONTINUED MEDICATIONS: 1. Tylenol p.r.n. 2. Colace p.r.n. 3. Hydralazine p.r.n. 4. Zofran p.r.n. 5. MiraLAX. HISTORY OF PRESENT ILLNESS/HOSPITAL COURSE: The patient is a 78-year-old male with past medical history of hypertension, CAD, status post CABG, hyperlipidemia, GERD, BPH, who presented for evaluation of a severe headache concerning changes with his speech. He presented to the ER after the onset of a headache and changes in his speech when walking around in [facility] on [address] was negative for subarachnoid hemorrhage. The patient was admitted to the Stroke Unit for CVA rule out. Brain MRI came back negative for any acute infarct or hemorrhage. He was risk stratified and was found to have triglycerides of 23, total cholesterol 122, LDL of 66, HDL of 49, TSH 0.842, A1c 5.3. He was started on atorvastatin and Plavix as this was likely to have been a TIA. He was found to have anemia in the hospital with hemoglobin of 12.5 and we worked up and found to likely be anemia of chronic disease. He also presented with hyponatremia into the hospital. This was also worked up and found to likely be chronic due to dehydration. The patient also was found to have deconditioning and he has had multiple falls within the last several months and PT and OT were consulted. PT had recommended rehab; however, he was not accepted to the rehab center. The patient was provided with home health and PT and OT services to the home with home discharge. The patient was evaluated on the day of discharge, and found to be in stable condition. DISPOSITION: Stable. DISCHARGE INSTRUCTIONS: 1. Location: Home. 2. Diet: Heart healthy. 3. Activity: As tolerated. 4. Followup: Primary care provider, Dr. Paulino within 7 days and with home health within 3 days. Job ID: [id number] MTDD
== END 2019-05-08 13:23 | disposition home health service (06) ==
LOC: ERS 16:46 → ERHOLD 18:30 → 2SE 05-07 00:57
PROVIDERS: ADMIT Family Medicine; ATTEND Family Medicine
DX: R47.81 Slurred speech (principal); R51 Headache; I10 Essential (primary) hypertension; F41.9 Anxiety disorder, unspecified; N40.0 Benign prostatic hyperplasia without lower urinary tract symptoms; K21.9 Gastro-esophageal reflux disease without esophagitis; I25.10 Atherosclerotic heart disease of native coronary artery without angina pectoris; E87.1 Hypo-osmolality and hyponatremia; E78.5 Hyperlipidemia, unspecified; I65.21 Occlusion and stenosis of right carotid artery; D64.9 Anemia, unspecified; F17.220 Nicotine dependence, chewing tobacco, uncomplicated; Z79.82 Long term (current) use of aspirin; Z79.899 Other long term (current) drug therapy; Z95.1 Presence of aortocoronary bypass graft
CPT/HCPCS: 70450; 70496; 70498; 70551; 71045; 80048; 80053; 80061; 80306; 80307; 81003; 82140; 82436; 82550; 82607; 82728; 82747; 82962; 83036; 83540; 83550; 83690; 83880; 83930; 83935; 84300; 84443; 84484; 85014; 85025; 85610; 85652; 85730; 93005; 93306; 96361 ×2; 96365; 96375; 97116; 97139 ×3; 97535; 99291; 99292; G0378 ×4; 36415; 36416; J1100; J1885; J2405; J2765; J3010; Q9967

== ENCOUNTER 2022-03-28 15:20 | Emergency (ER) | payer OTHER, MEDICARE, BC ==
[~2022-03-28 15:20] MED LIST changes: +Iopamidol 370 76% 100 ML VIAL ONE; -Iopamidol-370 76% 500 ML 1 ML ONE
[2022-03-28] MEDS ORDERED: Morphine 4 MG/ML VIAL ONE ×2 (15:25→16:05)
[2022-03-28 16:01] LABS: #Eosinphils 0.3 thou/uL (0.0-0.7); #Monocytes 0.7 thou/uL (0.11-0.59); %Basophils 0.1 % (0.0-1.0); %Eosinophils 2.5 % (0.0-10.0); %Lymphocytes 33.2 % (21.0-51.0); %Monocytes 5.7 % (0.0-10.0); %Neutrophils 58.5 % (42.0-75.0); Hemoglobin 11.3 g/dL (14.0-18.0); Mean Corpuscular HGB CONC 34.3 g/dL (32.0-36.0); Mean Corpuscular Volume 99.1 fl (78.0-98.0); Mean Platelet Volume 7.4 fL (7.4-10.4); Platelet Count 305 10x3/uL (130-400); RBC Distribution Width 12.4 % (11.5-14.5); Red Blood Cell (RBC) Count 3.33 mill/uL (4.70-6.10); White Blood Cell (WBC) Count 11.9 10x3/uL (4.8-10.8)
[2022-03-28] MEDS ORDERED: Boostrix 0.5 ML (Tdap) VIAL (>/=7 yrs of age) ONE (16:14)
[2022-03-28 16:17] LABS: INR-International Normal Ratio 0.9; Prothrombin Time 12.8 sec (12.0-14.7)
[2022-03-28 16:24] LABS: ALT (SGPT) 28 U/L (8-55); AST (SGOT) 45 U/L (5-34); Alkaline Phosphatase 70 U/L (40-110); Anion Gap 13 mmol/L (10-20); BUN (Urea Nitrogen) 12 mg/dL (8.4-25.7); CK (CPK) 196 U/L (30-200); Calc. Creatinine Clearance 0 mL/min (70-130); Calcium 9.1 mg/dL (7.8-10.44); Carbon Dioxide 24 mmol/L (23-31); Chloride 100 mmol/L (98-107); Estimated GFR 58; Glucose 116 mg/dL (83-110); Lipase 93 U/L (8-78); Potassium 4.4 mmol/L (3.5-5.1); Sodium 133 mmol/L (136-145)
[2022-03-28] MEDS ORDERED: Tranexamic Acid 1,000 MG/10 ML VIAL ONE (16:45)
[2022-03-28] MEDS ORDERED: Esmolol 2,500 MG/250 ML 250 ML ONE (16:55)
[2022-03-28] MEDS ORDERED: FENTANYL 50 MCG/ML 1 ML VIAL ONE (17:08)
[2022-03-28] MEDS ORDERED: diphenhydrAMINE 50 MG/ML VIAL ONE (17:14)
[2022-03-28] MEDS ORDERED: Tranexamic Acid 1,000 MG, Admixture Fee 1 EACH in Sodium Chloride 0.9% 250 ML 250 ML IVPB SCH (17:30)
[2022-03-28 18:24] LABS: SARS-CoV-2 NAA Rapid Test Not Detected (NotDetected)
== END 2022-03-28 17:45 | disposition short-term general hospital (02) ==
LOC: ERS 15:20
DX: S42.032A Displaced fracture of lateral end of left clavicle, initial encounter for closed fracture (principal); S22.42XA Multiple fractures of ribs, left side, initial encounter for closed fracture; S36.039A Unspecified laceration of spleen, initial encounter; S36.113A Laceration of liver, unspecified degree, initial encounter; S27.331A Laceration of lung, unilateral, initial encounter; I71.012 Dissection of descending thoracic aorta; J93.9 Pneumothorax, unspecified; Z23 Encounter for immunization; Z20.822 Contact with and (suspected) exposure to COVID-19; V89.2XXA Person injured in unspecified motor-vehicle accident, traffic, initial encounter
CPT/HCPCS: 36415; 70450; 71045; 71260; 72125; 72170; 74177; 80053; 82550; 83605; 83690; 85025; 85610; 85730; 86850; 86900; 86901; 90471; 90715; 93005; 96365; 96374; 96375; 96376; G0390; J1200; J2270; J3010; J7050; Q9967; U0002